=== PATIENT | male | born 1975 | race Caucasian/White ===

== ENCOUNTER 2024-03-27 15:18 | Emergency (ER) | payer BC, SELFPAY ==
[2024-03-27 15:18] VITALS: BP 139/110; PULSE 105; RESP 18; TEMP 36.4; O2SAT 97; BMI 35.0
--- NOTE | 2024-03-27 16:07 | CT_ITS ---
STUDY: CT ABDOMEN AND PELVIS WITH CONTRAST REASON FOR EXAM: Male, 49 years old. Nausea, vomiting, diarrhea RADIATION DOSAGE (If Supplied By Facility): CTDIvol = ( 18.30 ) mGy, DLP = ( 1304.58 ) mGycm TECHNIQUE: Transaxial images were obtained from the dome of the diaphragm to the symphysis pubis without oral contrast. IV 100mL Isovue-300 was administered. Sagittal and coronal images were reconstructed. Individualized dose optimization techniques were used for this CT. COMPARISON: None. FINDINGS: The visualized lung bases are unremarkable. The visualized portions of the heart are within normal limits. Normal liver. Normal gallbladder and extrahepatic biliary system. Normal spleen. Normal pancreas. Normal bilateral adrenal glands. Normal right kidney. Normal left kidney. Evaluation of the GI tract is limited by absence of oral contrast. Cannot exclude stomach wall thickening. There is moderate fluid distention of much of the mid and distal small bowel measuring as much as 3.5 cm across. Distal and terminal ileum are not distended. Small bowel obstruction is not excluded, but nonspecific diffuse enteritis is more likely. Large bowel is not distended. There is fluid throughout the large bowel as far as the rectum, consistent with nonspecific colitis/diarrheal disorders. Normal appendix. Normal abdominal aorta. Normal inferior vena cava. Normal retroperitoneum. Normal urinary bladder. Normal abdominal wall. Normal osseous structures. CT/Abdomen/Pelvis W IV Cont ONLY IMPRESSION: Fluid throughout the small and large bowel. Distention of most of the jejunum. Small bowel obstruction is not excluded, but nonspecific diffuse enterocolitis is more likely. Electronically Signed: Arnulfo Maguire MD at 18:32 EDT ,
--- NOTE | 2024-03-27 16:08 | ED.VIS.GI ---
HPI HPI - GI History of Present Illness Chief Complaint: Abd Pain Narrative Narrative: 49-year-old male who denies significant past medical history presents with nausea, vomiting, and diarrhea that has had over the last 4 days. He states symptoms started Sunday, mainly with nausea, vomiting, and diarrhea. In the last 24 hours he has vomited twice without any blood in his emesis and has had multiple episodes of loose, watery stool, without any blood. No fevers or chills. He has developed abdominal pain diffusely throughout his abdomen but mainly in the bilateral lower quadrants. He denies any dysuria or hematuria. No exacerbating or alleviating factors. No prior abdominal surgeries. [facility] Medical History (Updated 03/27/24 @ 18:38 by Fletcher Gil MD) HTN (hypertension) Home Medications ?Medication ?Instructions ?Recorded ?Last Taken ?Type dicyclomine 10 mg capsule 20 mg (2 x 10 mg) PO TID PRN 03/27/24 Unknown Rx abdominal pain #20 caps ondansetron 4 mg disintegrating 4 mg PO Q6H PRN nausea and 03/27/24 Unknown Rx tablet vomiting #20 tabs Allergy/AdvReac Type Severity Reaction Status Date / Time No Known Allergies Allergy Verified 03/27/24 15:21 Surgical History H/O knee surgery Social History Smoking Status: Current every day smoker tobacco type: cigarettes ROS ROS ED ROS Narrative Constitutional: No fever, no chills. HEENT: No sore throat. No neck pain. No loss of vision. No rhinorrhea. Cardiovascular: No chest pain. No palpitations. No pedal edema. Respiratory: No cough, no shortness of breath. Abdominal: Positive diffuse, bilateral lower quadrant abdominal pain. Positive nausea, vomiting, and diarrhea. No blood in emesis or stool. Genitourinary: No dysuria. No hematuria. Musculoskeletal: No myalgias. No arthralgias. Neurologic: No headaches. No dizziness. No lightheadedness. Skin: No rash. No change in color. Psychiatric: No depression. No anxiety. EXAM Physical Exam Narrative Exam Narrative: Afebrile. Vital signs noted. HEENT: Normocephalic. Atraumatic. PERRL, EOMI. Neck soft and supple. No point tenderness or step off. Cardiovascular: Mild tachycardia. No murmurs, rubs, or gallops appreciated. Respiratory: No tachypnea. Lungs clear to auscultation bilaterally. Gastrointestinal: Abdomen soft, positive diffuse tenderness with normoactive to hyperactive bowel sounds. No rebound or guarding. Neurological: Awake. Alert. Nonfocal, nonlateralizing. Skin: No rash. Normal color. No pallor. Musculoskeletal: No pedal edema. Full range of motion extremities. Const Vital Signs: 03/27/24 15:18 03/27/24 17:27 03/27/24 18:38 Temperature 97.5 F L 98.6 F 98.5 F Temperature Source Oral Oral Pulse Rate 105 H 68 75 Respiratory Rate 18 19 H 18 Blood Pressure 139/110 H 157/101 H 148/96 H Blood Pressure Mean 119 119 113 Pulse Ox 97 95 96 Oxygen Delivery Method Room Air Room Air MDM MDM MDM Narrative Medical decision making narrative: Differential diagnosis includes but not limited to colitis versus gastroenteritis versus diverticulitis. I have lower suspicion for appendicitis as he has more diffuse pain. As his symptoms have been ongoing for a few days and he is mildly tachycardic, concern is for dehydration or other electrolyte imbalance. He was administered a bolus of normal saline intravenously as well as ondansetron and morphine. I reviewed his laboratory work and he has slight elevation of his white count of 12.6 with hemoglobin hemoconcentrated at 18.4 and hematocrit 54.4, platelet count normal at 259. Electrolyte panel is significant for chloride of 110 which I think is nonspecific, BUN elevated at 21 with creatinine 1.33 consistent with mild dehydration, glucose appropriate at 91 with normal anion gap of 6. Lipase normal at 18 so I doubt pancreatitis. Urinalysis did show 5 ketones. While there is 4+ bacteria, there are 0 WBCs. I do not feel antibiotics are indicated as he is not having dysuria. I reviewed the radiology report of the CT of the abdomen and pelvis with IV contrast. It comments on moderate fluid distention of much of the mid and distal small bowel measuring is much as 3.5 cm across. There is distal and terminal ileum that is not distended. While small bowel obstruction is not excluded nonspecific diffuse enteritis is more likely. I do feel that given his GI symptoms, that this is more likely as well. Patient did require 0.5 mg of Dilaudid. Upon repeat examination at approximately 6:40 PM, his abdomen remains soft. He is motivated for discharge. He has not had any vomiting here in the emergency department. I feel he can be discharged safely home with follow-up to his primary care provider. He states he has an appointment with her next week. I wrote him prescriptions for Bentyl and for Zofran. Return instructions to the emergency department were reviewed. Patient agreeable to the plan. Disposition is discharged home in stable condition. History & Record Review Discussion w/independent historian: Patient Lab Data Attestation: I reviewed the patient's lab results. Labs: Laboratory Results - last 24 hr 03/27/24 16:49 WBC 12.6 H RBC 6.32 H Hgb 18.4 H* Hct 54.4 H MCV 86.1 MCH 29.1 MCHC 33.8 RDW Std Deviation 41.1 RDW Coeff of [place] 13.2 Plt Count 259 MPV 8.9 Immature Gran % (Auto) 0.400 Neut % (Auto) 78.7 H Lymph % (Auto) 13.5 L Williamson % (Auto) 5.7 Eos % (Auto) 0.9 Baso % (Auto) 0.8 Absolute Neuts (auto) 9.9 H Absolute Lymphs (auto) 1.70 Nucleated RBC % 0 Sodium 140 Potassium 3.9 Chloride 110 H Carbon Dioxide 25.0 Anion Gap 6 BUN 21 H Creatinine 1.33 H Estim Creat Clear Calc 75.47 Est GFR (MDRD) Af Amer 73 Est GFR (MDRD) Non-Af 61 BUN/Creatinine Ratio 15.8 Glucose 91 Calcium 9.9 Total Bilirubin 0.60 AST 34 ALT 65 H Alkaline Phosphatase 82 Total Protein 7.7 Albumin 4.2 Globulin 3.5 Albumin/Globulin Ratio 1.2 Lipase 18 Urine Color [place] Urine Clarity Turbid Urine pH 5.0 Ur Specific [place] 1.025 Urine Protein 30 H Urine Glucose (UA) Normal Urine Ketones 5 H Urine Occult Blood 250 H Urine Nitrite Negative Urine Bilirubin 1 H Urine Urobilinogen 1 H Ur Leukocyte Esterase 25 H Urine RBC 0 SEEN Urine WBC 0 SEEN Ur Squamous Epith Cells 0 SEEN Urine Bacteria 4+ Urine Mucus 0 SEEN Radiography Diagnostic Testing: Clinical Impression(s) from Imaging Studies Abdomen/Pelvis CT 03/27/24 16:07 IMPRESSION: Fluid throughout the small and large bowel. Distention of most of the jejunum. Small bowel obstruction is not excluded, but nonspecific diffuse enterocolitis is more likely. Electronically Signed: Arnulfo Maguire MD at 18:32 EDT , Discharge Plan Triage Chief Complaint: Abd Pain ED Provider: Fletcher Gil Dx/Rx/DC Orders Clinical Impression: Nausea, vomiting, and diarrhea, Abdominal pain, Mild dehydration Instructions: ED Dehydration (Adult), ED Diarrhea, Unknown Cause, ED Diet Vomiting Diarrhea, ED Abdominal Pain Unkn Cause Male... Prescriptions: New dicyclomine 10 mg capsule 20 mg PO TID PRN (Reason: abdominal pain) Qty: 20 0RF ondansetron 4 mg tablet,disintegrating 4 mg PO Q6H PRN (Reason: nausea and vomiting) Qty: 20 0RF Stand Alone Forms: ED Work / School Excuse Primary Care Provider: Care Physician,No Primary Referrals: Care Physician,No Primary [Primary Care Provider] - Activity Restrictions/Additional Instructions: Follow-up with your primary care provider as scheduled next week. Return to the emergency department with fever, increased pain, inability to tolerate liquids, new or worsening symptoms. Print Language: Citizen Of [place] Disposition Disposition: Home, Self Care
[2024-03-27] MEDS: 0.9% Normal Saline (1000mL) 1,000 ML 999 ML IV (16:45)
[2024-03-27] MEDS: Ondansetron 4 MG/2 ML Vial IV (16:45)
[2024-03-27] MEDS: Morphine 4 MG/ML Syringe IV (16:45)
[2024-03-27 16:53] LABS: Mucous, Urine 0 SEEN /hpf (<or=2+); Red Blood Cells-Urine 0 SEEN /hpf (0-5); Squamous Epithelial Cells - UA 0 SEEN /hpf (0-5); White Blood Cells 0 SEEN /hpf (0-5)
[2024-03-27 17:01] LABS: Color, Urine Amber (Yellow); Glucose, Dipstick Normal (Normal); Ketone-Dipstick 5 mg/dl (Negative); Leukocyte Esterase-Dipstick 25 /ul (Negative); Nitrite-Dipstick Negative (Negative); Occult Blood-Urine 250 /ul (Negative); Protein-Dipstick 30 mg/dl (Negative); Specific Gravity, Urine 1.025 (1.002-1.030); Urine Clarity Turbid (Clear); Urine Urobilinogen 1 mg/dl (Normal)
[2024-03-27 17:06] LABS: Absolute Neutrophil Count 9.9 X10^3/uL (2.0-7.7); Basophil% 0.8 % (0-1); Eosinophil# 0.11 X10^3/uL; Eosinophils% 0.9 % (0-5); Hematocrit 54.4 % (40-54); Lymphocyte % 13.5 % (19-41); Mean Corp Hgb Conc 33.8 g/dL (32-36); Mean Corpuscular Hgb 29.1 pg (27.0-32.0); Mean Corpuscular Volume 86.1 fL (80-94); Mean Platelet Vol. 8.9 fl (6.2-12.0); Monocyte# 0.72 X10^3/uL; Monocyte% 5.7 % (0-10); NRBC Flagged by Analyzer 0 % (0-5); Neutrophil # 9.91 X10^3/uL (2.7-7.7); Neutrophil % 78.7 % (47-70); Platelet Count 259 K/mm3 (150-450); RBC Distribution Width CV 13.2 % (11.6-14.6); RBC Distribution Width SD 41.1 fl (35.1-43.9); Red Blood Count 6.32 M/mm3 (4.6-6.2); White Blood Count 12.6 K/mm3 (4.4-11.0)
[2024-03-27 17:14] LABS: Urine Bilirubin Dipstick 1 mg/dL (Negative)
[2024-03-27 17:16] LABS: Bacteria 4+ /hpf (None Seen)
[2024-03-27 17:24] LABS: ALB/GLOB Ratio 1.2 RATIO (0.9-2.4); AST(SGOT) 34 U/L (15-37); Alanine Aminotransfer ALT/SGPT 65 U/L (16-61); Albumin, Serum 4.2 g/dL (3.2-5.0); Alkaline Phosphatase 82 U/L (45-117); Anion Gap 6 (5-15); BUN 21 mg/dL (7-18); BUN/Creat Ratio 15.8 RATIO (10-20); Calcium,Total 9.9 mg/dL (8.5-10.1); Chloride 110 mmol/L (98-107); Creatinine, Serum 1.33 mg/dL (0.70-1.30); EST Glomerular Filtration Rate 61 mL/min (>60); Est Glom Filt Rate - Afr Amer 73 mL/min (>60); Estimated Creatinine Clearance 75.47 ml/min; Globulin 3.5 g/dL (2.2-4.2); Glucose 91 mg/dL (74-106); Lipase 18 U/L (13-75); Potassium 3.9 mmol/L (3.5-5.1); Protein, Total 7.7 g/dL (6.4-8.2); Sodium Level 140 mmol/L (136-145)
[2024-03-27 17:27] VITALS: BP 157/101; PULSE 68; RESP 19; TEMP 37; O2SAT 95
[2024-03-27 17:49] LABS: Hemoglobin 18.4 g/dL (13.0-16.5)
[2024-03-27] MEDS: HYDROmorphone 0.5 MG/0.5 ML SYRINGE IV (18:12)
[2024-03-27 18:38] VITALS: BP 148/96; PULSE 75; RESP 18; TEMP 36.9; O2SAT 96
[2024-03-31 13:53] LABS: Pathologist Review Reviewed
== END 2024-03-27 18:47 | disposition home or self-care (01) ==
PROVIDERS: Emergency Provider Emergency Medicine; Referring Provider Emergency Medicine; Visit Provider Emergency Medicine
DX: R10.30 Lower abdominal pain, unspecified (principal); R11.2 Nausea with vomiting, unspecified; I10 Essential (primary) hypertension; R19.7 Diarrhea, unspecified; F17.210 Nicotine dependence, cigarettes, uncomplicated; E86.0 Dehydration
CPT/HCPCS: 74177; 80053; 81001; 83690; 85025; 96361; 96372; 96374; 96375; 99284; J7030; Q9967; A4216; J2405

== ENCOUNTER 2024-05-01 05:19 | Emergency (ER) | payer BC, SELFPAY ==
[2024-05-01 05:20] VITALS: BP 134/94; PULSE 71; RESP 18; TEMP 36.6; O2SAT 99; BMI 35.6
[2024-05-01] MEDS: Ketorolac 30 MG/ML Syringe IV (05:46)
[2024-05-01] MEDS: 0.9% Normal Saline (1000mL) 1,000 ML 999 ML IV (05:46)
[2024-05-01] MEDS: Ondansetron 4 MG/2 ML Vial IV (05:46)
[2024-05-01 05:55] LABS: Absolute Lymphocyte Count 2.08 X10^3/uL (0.83-4.51); Absolute Neutrophil Count 4.1 X10^3/uL (2.0-7.7); Basophil# 0.11 X10^3/uL; Basophil% 1.6 % (0-1); Eosinophil# 0.25 X10^3/uL; Eosinophils% 3.5 % (0-5); Hematocrit 48.2 % (40-54); Hemoglobin 16.7 g/dL (13.0-16.5); Lymphocyte # 2.08 X10^3/ul (0.83-4.51); Lymphocyte % 29.5 % (19-41); Mean Corp Hgb Conc 34.6 g/dL (32-36); Mean Corpuscular Hgb 30.5 pg (27.0-32.0); Mean Corpuscular Volume 88.1 fL (80-94); Monocyte# 0.46 X10^3/uL; Monocyte% 6.5 % (0-10); NRBC Flagged by Analyzer 0 % (0-5); Neutrophil # 4.13 X10^3/uL (2.7-7.7); Neutrophil % 58.5 % (47-70); Platelet Count 200 K/mm3 (150-450); RBC Distribution Width CV 13.2 % (11.6-14.6); RBC Distribution Width SD 42.5 fl (35.1-43.9); Red Blood Count 5.47 M/mm3 (4.6-6.2); White Blood Count 7.1 K/mm3 (4.4-11.0)
[2024-05-01 06:18] LABS: AST(SGOT) 26 U/L (15-37); Alanine Aminotransfer ALT/SGPT 48 U/L (16-61); Albumin, Serum 3.7 g/dL (3.2-5.0); Alkaline Phosphatase 75 U/L (45-117); Anion Gap 3 (5-15); BUN 14 mg/dL (7-18); BUN/Creat Ratio 12.1 RATIO (10-20); Bilirubin, Direct 0.18 mg/dL (0.00-0.30); Chloride 110 mmol/L (98-107); Creatinine, Serum 1.16 mg/dL (0.70-1.30); EST Glomerular Filtration Rate 71 mL/min (>60); Est Glom Filt Rate - Afr Amer 86 mL/min (>60); Estimated Creatinine Clearance 87.31 ml/min; Globulin 3.1 g/dL (2.2-4.2); Glucose 107 mg/dL (74-106); Lipase 39 U/L (13-75); Magnesium 2.1 mg/dL (1.6-2.6); Potassium 3.8 mmol/L (3.5-5.1); Protein, Total 6.8 g/dL (6.4-8.2); Sodium Level 141 mmol/L (136-145)
[2024-05-01 06:53] VITALS: BP 138/79; PULSE 79; RESP 18; TEMP 36.6; O2SAT 99
== END 2024-05-01 06:54 | disposition home or self-care (01) ==
PROVIDERS: Emergency Provider Emergency Medicine; Visit Provider Emergency Medicine
DX: R11.2 Nausea with vomiting, unspecified (principal); R19.7 Diarrhea, unspecified; I10 Essential (primary) hypertension; F17.210 Nicotine dependence, cigarettes, uncomplicated; R50.9 Fever, unspecified
CPT/HCPCS: 80048; 80076; 83690; 83735; 85025; 87631; 96361; 96374; 96375; 99283; J7030; A4216; J2405

== ENCOUNTER 2024-11-27 03:22 | Emergency (ER) | payer OTHER, SELFPAY ==
[2024-11-27 03:23] VITALS: BP 134/95; PULSE 102; RESP 18; TEMP 36.6; O2SAT 98; BMI 36.8
[2024-11-27 03:27] VITALS: BP 134/95; PULSE 102; RESP 18; TEMP 36.6; O2SAT 98
[2024-11-27 03:48] LABS: Absolute Lymphocyte Count 1.71 X10^3/uL (0.83-4.51); Absolute Neutrophil Count 9.2 X10^3/uL (2.0-7.7); Basophil% 0.8 % (0-1); Eosinophil# 0.17 X10^3/uL; Eosinophils% 1.4 % (0-5); Hematocrit 49.7 % (40-54); Hemoglobin 17.2 g/dL (13.0-16.5); Lymphocyte # 1.71 X10^3/ul (0.83-4.51); Lymphocyte % 14.2 % (19-41); Mean Corp Hgb Conc 34.6 g/dL (32-36); Mean Corpuscular Hgb 30.2 pg (27.0-32.0); Mean Corpuscular Volume 87.2 fL (80-94); Mean Platelet Vol. 9.1 fl (6.2-12.0); Monocyte# 0.85 X10^3/uL; Monocyte% 7.1 % (0-10); NRBC Flagged by Analyzer 0 % (0-5); Neutrophil # 9.16 X10^3/uL (2.7-7.7); Platelet Count 221 K/mm3 (150-450); RBC Distribution Width CV 13.1 % (11.6-14.6); RBC Distribution Width SD 41.1 fl (35.1-43.9); White Blood Count 12.1 K/mm3 (4.4-11.0)
[2024-11-27] MEDS: Ketorolac 30 MG/ML Syringe IV (03:55)
[2024-11-27] MEDS: 0.9% Normal Saline (1000mL) 1,000 ML 999 ML IV ×2 (03:55→04:56)
[2024-11-27] MEDS: Ondansetron 4 MG/2 ML Vial IV (03:56)
[2024-11-27 04:14] LABS: AST(SGOT) 32 U/L (<=37); Alanine Aminotransfer ALT/SGPT 50 U/L (<=46); Albumin, Serum 4.4 g/dL (3.5-5.0); Alkaline Phosphatase 89 U/L (40-129); Anion Gap 14 (5-15); BUN 18 mg/dL (4-19); BUN/Creat Ratio 14.4 RATIO (10-20); Bilirubin, Direct 0.23 mg/dL (0.00-0.30); Calcium,Total 9.1 mg/dL (7.6-11.0); Carbon Dioxide 22.7 mmol/L (21.0-32.0); Chloride 106 mmol/L (98-108); Creatinine, Serum 1.26 mg/dL (0.70-1.20); EST Glomerular Filtration Rate 69 (>60); Estimated Creatinine Clearance 81.72 ml/min (50-250); Globulin 2.4 g/dL (2.2-4.2); Glucose 107 mg/dL (70-99); Lipase 23 U/L (13-75); Potassium 3.8 mmol/L (3.3-5.1); Protein, Total 6.8 g/dL (5.9-8.4); Sodium Level 142 mmol/L (133-145); Total Bilirubin 0.59 mg/dL (0.00-1.30)
--- OUTSIDE RECORDS SUMMARY | 2024-11-27 04:19 | XMS RPT_ITS | CCD ---
Author Organization [facility] Care Team Providers Care Dressmaking Teacher Name Role Phone Required, No Pcp Unavailable Unavailable Gerardo Saunders Unavailable Unavailable Jasmin Mayer Primary Care Provider SCOTT MCDANIELS APRN Attending Unavailable SCOTT MCDANIELS APRN Primary Care Unavailable SCOTT MCDANIELS APRN Admitting Unavailable SCOTT MCDANIELS APRN Admitting Unavailable SCOTT MCDANIELS APRN Attending Unavailable SCOTT MCDANIELS APRN Primary Care Unavailable SCOTT MCDANIELS APRN Attending Unavailable SCOTT MCDANIELS APRN Primary Care Unavailable SCOTT MCDANIELS APRN Admitting Unavailable Jasmin Mayer Primary Care Provider JASMIN CASEY Primary Care Unavailable BERTO DIANA Attending Unavailable JASMIN CASEY Primary Care Unavailable JASMIN CASEY Primary Care Unavailable GERARDO SAUNDERS Attending Unavailable Medications Current Medications Medication Drug Class(es) Dates Sig (Normalized) Sig (Original) atropine sulfate 0.025 mg / diphenoxylate hydrochloride 2.5 mg oral tablet (2 sources) Anticholinergic, Cholinergic Muscarinic Antagonist, Antidiarrheal Start: 03-24-2024 End: 03-27-2024 take 1 tablet by mouth four times daily as needed for diarrhea diphenoxylate-atrop ine (LomotiL) 2.5-0.025 mg tablet Indications: Diarrhea, unspecified type Take 1 tablet by mouth 4 times a day as needed for diarrhea for up to 3 days. 12 tablet 03/24/2024 03/27/2024 Active ciprofloxacin 500 mg oral tablet (2 sources) Quinolone Antimicrobial Start: 03-24-2024 End: 03-31-2024 take 1 tablet by mouth twice daily ciprofloxacin (Cipro) 500 mg tablet Indications: Abdominal pain, unspecified abdominal location , Diarrhea, unspecified type , Enteritis Take 1 tablet (500 mg) by mouth 2 times a day for 7 days. 14 tablet 03/24/2024 03/31/2024 Active dicyclomine hydrochloride 20 mg oral tablet (1 source) Anticholinergic Start: 03-26-2024 End: 04-02-2024 take 1 tablet by mouth four times daily before mealtime dicyclomine (Bentyl) 20 mg tablet Indications: Enteritis Take 1 tablet (20 mg) by mouth 4 times a day before meals for 7 days. 28 tablet 03/26/2024 04/02/2024 Active ondansetron 8 mg disintegrating oral tablet (3 sources) Serotonin-3 Receptor Antagonist Start: 03-26-2024 End: 04-02-2024 take 1 tablet by mouth every eight hours for nausea ondansetron ODT (Zofran-ODT) 8 mg disintegrating tablet Indications: Enteritis Take 1 tablet (8 mg) by mouth every 8 hours if needed for nausea or vomiting for up to 7 days. 20 tablet 03/26/2024 04/02/2024 Active Start: 03-26-2024 End: 03-26-2024 4 mg, intravenous, Once, On Sun03/26/24 at 0340, For 1 dose, When administering via IV Push, administer over 3-5 minutes. Start: 03-24-2024 End: 03-24-2024 4 mg, intravenous, Once, On Sun03/24/24 at 1240, For 1 dose, When administering via IV Push, administer over 3-5 minutes. predniSONE 20 mg oral tablet (1 source) Start: 10-28-2024 End: 11-02-2024 take 2 tablets by mouth once daily predniSONE (Deltasone) 20 mg tablet Indications: Pain of right heel Take 2 tablets (40 mg) by mouth once daily for 5 days. 10 tablet 10/28/2024 11/02/2024 Active promethazine hydrochloride 25 mg rectal suppository (1 source) Phenothiazine Start: 03-26-2024 End: 03-29-2024 promethazine (Phenergan) 25 mg suppository Indications: Enteritis Insert 1 suppository (25 mg) into the rectum every 6 hours if needed for nausea or vomiting for up to 3 days. 12 suppository 03/26/2024 03/29/2024 Active Completed/Discontinued Medications Medication Drug Class(es) Dates Sig (Normalized) Sig (Original) iohexol (OMNIPaque) 350 mg iodine/mL solution 68 mL (1 source) Start: 03-26-2024 End: 03-26-2024 68 mL, intravenous, Once in imaging, Starting on Sun03/26/24 at 0446, For 1 dose iohexol (OMNIPaque) 350 mg iodine/mL solution 69 mL (1 source) Start: 03-24-2024 End: 03-24-2024 69 mL, intravenous, Once in imaging, Starting on Sun03/24/24 at 1354, For 1 dose methylPREDNISolone 125 mg injection (1 source) Corticosteroid Start: 10-28-2024 End: 10-28-2024 inject 125 mg by intramuscular injection once 125 mg, intramuscular, Once, On Sun10/28/24 at 2005, For 1 dose 1 ml morphine sulfate 4 mg/ml prefilled syringe (2 sources) Opioid Agonist Start: 03-26-2024 End: 03-26-2024 4 mg, intravenous, Once, On Sun03/26/24 at 0340, For 1 dose Start: 03-24-2024 End: 03-24-2024 4 mg, intravenous, Once, On Sun03/24/24 at 1240, For 1 dose 1000 ml sodium chloride 9 mg/ml injection (5 sources) Start: 03-26-2024 End: 03-26-2024 1,000 mL, intravenous, at 99 9 mL/hr, Administer over 1 Hours, Once, On Sun03/26/24 at 0550, For 1 dose Start: 03-24-2024 End: 03-24-2024 1,000 mL, intravenous, at 99 9 mL/hr, Administer over 1 Hours, Once, On Sun03/24/24 at 1215, For 1 dose Start: 03-24-2024 take 125 mL intraven ously every hour 125 mL/hr, intravenous, Continuous, Starting on Sun03/24/24 at 1215 Problems Active Problems Problem Classification Problem Date Documented Da te Episodic/Chronic Deficiency and other anemia (2 sources) Other hemoglobinopathies ; 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-2024 Chronic Disorders of lipid metabolism (2 sources) Mixed hyperlipidemia; Translations: [Mixed hyperlipidemia] Onset: 04-01-2024 Chronic Essential hypertension (2 sources) Essential (primary) hypertension; Translations: [Essential (primary) hypertension] Onset: 04-01-2024 Chronic Headache; including migraine (2 sources) Headache; including migraine 04-13-2021 Comment on above: COUGH, HEADACHE, BOD Y ACHES Other connective tissue disease (1 source) Pain in right heel; Translations: [Pain in right foot] 10-28-2024 Episodic Other connective tissue disease (2 sources) Pain in right foot; Translations: [Pain in right foot] Onset: 10-28-2024 Episodic Other gastrointestinal disorders (1 source) Diarrhea; Translations: [Diarrhea, unspecified] 03-24-2024 Episodic Unclassified (1 source) COVID-19 viremia 04-13-2021 Viral infection (1 source) Viremia, unspecified 04-13-2021 Episodic Past or Other Problems Problem Classification Problem Date Documented Da te Episodic/Chronic Abdominal pain (3 sources) Abdominal pain; Translations: [Unspecified abdominal pain] Onset: 03-24-2024 03-24-2024 Episodic Noninfectious gastroenteritis (4 sources) Enteritis of small intestine; Translations: [Noninfective gastroenteritis and colitis, unspecified] Onset: 03-24-2024 03-26-2024 Episodic Other gastrointestinal disorders (2 sources) Diarrhea, unspecified; Translations: [Diarrhea, unspecified] Onset: 03-24-2024 Episodic Results Test Name Value Interpretation Reference Range Facility XR FOOT RIGHT 3+ VIEWSon XR FOOT RIGHT 3+ VIEWS Interpreted By: Eusebio Iqbal, STUDY: XR FOOT RIGHT 3+ VIEWS; ; 10/28/2024 7:30 pm INDICATION: Signs/Symptoms:heel pain. COMPARISON: None. ACCESSION NUMBER(S): [id number] ORDERING CLINICIAN: JENNIFER RAMIREZ FINDINGS: Mild arthritic spurring 1st MTP joint. No acute fracture or dislocation. Enthesophytes seen insertion of the Achilles tendon. IMPRESSION: No acute fracture. Degenerative changes as above. MACRO: None Signed by: Eusebio Iqbal 10/28/2024 7:53 PM Dictation workstation: [id number] [facility] XR Foot - right 3 Viewson No acute fracture. Degenerative changes as above. MACRO: None Signed by: Eusebio Iqbal 10/28/2024 7:53 PM Dictation workstation: [id number] [facility] Interpreted By: Eusebio Chakraborty ala, STUDY: XR FOOT RIGHT 3+ VIEWS; ; 10/28/2024 7:30 pm INDICATION: Signs/Symptoms:heel pain. COMPARISON: None. ACCESSION NUMBER(S): [id number] ORDERING CLINICIAN: JENNIFER RAMIREZ FINDINGS: Mild arthritic spurring 1st MTP joint. No acute fracture or dislocation. Enthesophytes seen insertion of the Achilles tendon. [facility] Eusebio Iqbal MD - 10/28/2024 Interpreted By: Eusebio Iqbal, STUDY: XR FOOT RIGHT 3+ VIEWS; ; 10/28/2024 7:30 pm INDICATION: Signs/Symptoms:heel pain. COMPARISON: None. ACCESSION NUMBER(S): [id number] ORDERING CLINICIAN: JENNIFER RAMIREZ FINDINGS: Mild arthritic spurring 1st MTP joint. No acute fracture or dislocation. Enthesophytes seen insertion of the Achilles tendon. IMPRESSION: No acute fracture. Degenerative changes as above. MACRO: None Signed by: Eusebio Iqbal 10/28/2024 7:53 PM Dictation workstation: [id number] [facility] Work Phone: Radiology Study observation (narrative) [facility] Work Phone: XR Foot - right 3 ViewsOrder ed By: Eusebio Iqbal on 10-28-2024 [facility] Work Phone: CBC + DIFFon 04-01-2024 Baso # 0.07 x10EE3/UL Normal 0.00 - 0.10 [facility] Comment on above: Performed By: #### 2 99735 #### [facility],[address] [place], [place] [id number] Basophils/100 WBC (Bld) 0.7 % Normal 0.0 - 2.0 [facility] Comment on above: Performed By: #### 2 68683 #### [facility],[address] [place], [place] [id number] CBC + DIFF Normal [facility] Comment on above: Result Comment: CBC- COMPLETE BLOOD COUNT Performed By: #### 2 81599 #### [address] [address] EO # 0.31 x10EE3/UL Normal 0.00 - 0.50 [facility] Comment on above: Performed By: #### 2 31511 #### [place] [id number] Eosinophils/100 WBC (Bld) 3.1 % Normal 0.0 - 7.0 [facility] Comment on above: Performed By: #### 2 98995 #### [place] [address] Erythrocyte distribution width (RBC) [Ratio] 13.8 % Normal 12.0 - 15.6 [facility] Comment on above: Performed By: #### 2 63811 #### [place] [address] Hematocrit (Bld) [Volume fraction] 56.8 % High 40.0 - 52.0 [facility] Comment on above: Performed By: #### 2 70504 #### [place] [address] Hemoglobin (Bld) [Mass/Vol] 19.3 g/dL High 13.0 - 17.5 [facility] Comment on above: Performed By: #### 2 63415 #### [place] [id number] Lymph # 2.45 x10EE3/UL Normal 0.80 - 2.80 [facility] Comment on above: Performed By: #### 2 18025 #### [place] [id number] Lymphocytes/100 WBC (Bld) 24.3 % Normal 20.0 - 45.0 [facility] Comment on above: Performed By: #### 2 33349 #### [facility],[address] [place] [address] MANUAL DIFF N/A Normal [facility] Comment on above: Performed By: #### 2 86381 #### [facility],[address] [place] [address] MCH (RBC) [Entitic mass] 30 pg Normal 27 - 33 [facility] Comment on above: Performed By: #### 2 79429 #### [place] [address] MCHC 34 X10 3 Normal 32 - 36 [facility] Comment on above: Performed By: #### 2 41410 #### [place] [address] MCV (RBC) [Entitic vol] 89 fL Normal 81 - 98 [facility] Comment on above: Performed By: #### 2 98862 #### [place] [address] [place]au # 0.57 x10EE3/UL Normal 0.20 - 1.00 [facility] Comment on above: Performed By: #### 2 70771 #### [place] [address] MONOS % 5.6 % Normal 0.0 - 10.0 [facility] Comment on above: Performed By: #### 2 65148 #### [facility],[address] [place] [address] Morphology Edwardo (Bld) [Interp] N/A Normal [facility] Comment on above: Performed By: #### 2 14646 #### [place] [address] Neut # 6.71 x10EE3/UL Normal 1.50 - 7.10 [facility] Comment on above: Performed By: #### 2 03393 #### [place] [address] Neutrophils/100 WBC (Bld) 66.4 % Normal 46.0 - 76.0 [facility] Comment on above: Performed By: #### 2 25314 #### [facility],[address] [place] [address] PLATELET 262 x10EE3/UL Normal 150 - 450 [facility] Comment on above: Performed By: #### 2 80898 #### [facility],[address] [place] [address] 95868 Platelet mean volume (Bld) [Entitic vol] 7.5 fL Normal 6.4 - 10.5 [facility] Comment on above: Result Comment: AUTO MATED DIFFERENTIAL Performed By: #### 2 30458 #### [facility],[address] [place] [address]89[address] RBC 6.40 x 10EE6/UL High 4.50 - 6.00 [facility] Comment on above: Performed By: #### 2 57631 #### [facility],[address] [place] [address]37[address] WBC 10.1 x 10EE3/UL Normal 4.5 - 10.8 [facility] Comment on above: Performed By: #### 2 25194 #### [facility],[address] [place] [address]4212 CMP with eGFRon 04-01-2024 AGE 49 years Normal [facility] Comment on above: Performed By: #### 2 85924 #### [facility],[address] [place] [address]606 Albumin [Mass/Vol] 4.0 g/dL Normal 3.4 - 5.0 [facility] Comment on above: Performed By: #### 2 67576 #### [facility],[address] [place] [address]32 Albumin/Globulin [Mass ratio] 1.3 {ratio} Normal 0.9 - 1.6 [facility] Comment on above: Performed By: #### 2 41777 #### [facility],[address] [place] [address] 04835 ALK PHOS 89 U/L Normal 46 - 116 [facility] Comment on above: Performed By: #### 2 01888 #### [facility],[address] [place] [address] 35415 ALT [Catalytic activity/Vol] 55 U/L Normal 16 - 63 [facility] Comment on above: Performed By: #### 2 07564 #### [facility],[address] [place] [address] 249[address] Anion gap [Moles/Vol] 15 mmol/L Normal 10 - 20 [facility] Comment on above: Performed By: #### 2 46935 #### [facility],[address] [place] [address] 18272 AST [Catalytic activity/Vol] 26 U/L Normal 15 - 37 [facility] Comment on above: Performed By: #### 2 22499 #### [facility],[address] [place] [address] 33267 B/C RATIO 10 ratio Normal 0 - 30 [facility] Comment on above: Performed By: #### 2 36848 #### [facility],[address] [place] [address] 01438 Bilirubin [Mass/Vol] 0.3 mg/dL Normal 0.2 - 1.0 [facility] Comment on above: Performed By: #### 2 90514 #### [facility],[address] [place] [address]1929 Calcium [Mass/Vol] 9.1 mg/dL Normal 8.5 - 10.1 [facility] Comment on above: Performed By: #### 2 69468 #### [facility],[address] [place] [address] 48027 Chloride [Moles/Vol] 108 mmol/L High 98 - 107 [facility] Comment on above: Performed By: #### 2 47994 #### [facility],[address] [place] [address] CMP with eGFR Normal [facility] Comment on above: Result Comment: COMP REHENSIVE METABOLIC PANEL Performed By: #### 2 27271 #### [facility],[address] [place] [address]80[address] CO2 [Moles/Vol] 27.1 mmol/L Normal 21.0 - 32.0 [facility] Comment on above: Performed By: #### 2 09180 #### [facility],[address] [place] [address] 55067 Creatinine [Mass/Vol] 1.22 mg/dL Normal 0.70 - 1.30 [facility] Comment on above: Performed By: #### 2 73151 #### [facility],[address] [place] [address] GFR/1.73 sq M.predicted among non-blacks MDRD (S/P/Bld) [Vol rate/Area] mL/min/{1.73_m2} Normal 60 - 999 [facility] Comment on above: Performed By: #### 2 59445 #### [facility],[address] [place] [address] Result Comment: ACCO RDING TO THE NATIONAL KIDNEY DISEASE EDUCATION PROGRAM(NKDE), A NORMAL eGFR IS A VALUE GREATER THAN OR EQUAL TO 60 ML/MIN/1.73 SQ METERS. CHRONIC KIDNEY DISEASE: <60mL/MIN/1.73 SQ METERS KIDNEY FAILURE: <15mL/MIN/1.73 SQ METERS THIS TEST SHOULD ONLY BE USED FOR PATIENTS 18 YEARS OF AGE AND OLDER. Globulin (S) [Mass/Vol] 3.2 g/dL Normal 1.5 - 3.8 [facility] Comment on above: Performed By: #### 2 11518 #### [facility],[address] [place], [place] [phone] Glucose [Mass/Vol] 102 mg/dL Normal 74 - 106 [facility] Comment on above: Performed By: #### 2 84679 #### [facility],[address] [place] [address]36[address] Potassium [Moles/Vol] 4.5 mmol/L Normal 3.5 - 5.1 [facility] Comment on above: Performed By: #### 2 31643 #### [facility],[address] [place] [address] Protein [Mass/Vol] 7.2 g/dL Normal 6.4 - 8.2 [facility] Comment on above: Performed By: #### 2 32476 #### [facility],[address] [place] [address] Sodium [Moles/Vol] 146 mmol/L High 136 - 145 [facility] Comment on above: Performed By: #### 2 08989 #### [facility],[address] [place] [address] 19349 Urea nitrogen [Mass/Vol] 12 mg/dL Normal 7 - 18 [facility] Comment on above: Performed By: #### 2 83550 #### [facility],[address] [place] [address] LIPID PROFILEon 04-01-2024 Cholesterol [Mass/Vol] 120 mg/dL Normal 0 - 240 [facility] Comment on above: Performed By: #### 2 98359 #### [facility],[address] [place] [address] 18932 Cholesterol in HDL [Mass/Vol] 34 mg/dL Low 40 - 60 [facility] Comment on above: Performed By: #### 2 87488 #### [facility],[address] [place] [address] Cholesterol in LDL [Mass/Vol] 56 mg/dL Normal 0 - 129 [facility] Comment on above: Performed By: #### 2 58891 #### [facility],[address] [place] [address] 714[address] Cholesterol.total/C holesterol in HDL [Mass ratio] 3.5 {ratio} Normal 0.0 - 5.0 [facility] Comment on above: Performed By: #### 2 68879 #### [facility],[address] [place] [address] Lipid 1996 panel Normal [facility] Comment on above: Result Comment: LIPI D PROFILE Performed By: #### 2 88176 #### [facility],[address] [place] [address] Triglyceride [Mass/Vol] 148 mg/dL Normal 0 - 150 [facility] Comment on above: Performed By: #### 2 66726 #### [facility],[address] [place] [address] CBC W Auto Differential pane l (Bld)on 03-26-2024 Basophils (Bld) [#/Vol] 0.07 10*3/uL [facility] Basophils/100 WBC (Bld) 0.8 % 0.0 - 2.0 % [facility] Eosinophils (Bld) [#/Vol] 0.37 10*3/uL [facility] Eosinophils/100 WBC (Bld) 4.1 % 0.0 - 6.0 % [facility] Erythrocyte distribution width (RBC) [Ratio] 13.2 % 11.5 - 14.5 % [facility] Hematocrit (Bld) [Volume fraction] 47.4 % 41.0 - 52.0 % [facility] Hemoglobin (Bld) [Mass/Vol] 16.3 g/dL 13.5 - 17.5 g/dL [facility] Immature granulocytes (Bld) [#/Vol] 0.03 10*3/uL [facility] Immature granulocytes/100 WBC (Bld) 0.3 % 0.0 - 0.9 % [facility] Comment on above: Immature Granulocyte Count (IG) includes promyelocytes, myelocytes and metamyelocytes but does not include bands. Percent differential counts (%) should be interpreted in the context of the absolute cell counts (cells/UL). Lymphocytes (Bld) [#/Vol] 2.56 10*3/uL [facility] Lymphocytes/100 WBC (Bld) 28.3 % 13.0 - 44.0 % [facility] MCH (RBC) [Entitic mass] 30.0 pg 26.0 - 34.0 pg [facility] MCHC (RBC) [Mass/Vol] 34.4 g/dL 32.0 - 36.0 g/dL [facility] MCV (RBC) [Entitic vol] 87 fL 80 - 100 fL [facility] Monocytes (Bld) [#/Vol] 0.44 10*3/uL [facility] Monocytes/100 WBC (Bld) 4.9 % 2.0 - 10.0 % [facility] Neutrophils (Bld) [#/Vol] 5.57 10*3/uL [facility] Comment on above: Percent differential counts (%) should be interpreted in the context of the absolute cell counts (cells/uL). Neutrophils/100 WBC (Bld) 61.6 % 40.0 - 80.0 % [facility] Nucleated RBC/100 WBC (Bld) [Ratio] 0.0 % [facility] Platelets (Bld) [#/Vol] 220 10*3/uL [facility] RBC (Bld) [#/Vol] 5.43 10*6/uL [facility] WBC (Bld) [#/Vol] 9.0 10*3/uL [facility] Basophils (Bld) [#/Vol] 0.07 x10*3/uL Normal 0.00-0.10 [facility] Comment on above: Performed By: #### 1 9123-9 #### DEVANG CHU ([id number]) [facility] ([facility]) [address] [place] [address]661 Basophils/100 WBC (Bld) 0.8 % Normal 0.0-2.0 [facility] Comment on above: Performed By: #### 1 9123-9 #### DEVANG CHU ([id number]) [facility] ([facility]) [facility] [place] [address] Eosinophils (Bld) [#/Vol] 0.37 x10*3/uL Normal 0.00-0.70 [facility] Comment on above: Performed By: #### 1 9123-9 #### DEVANG CHU ([id number]) [facility] ([facility]) [address] [place] [address] 58831 Eosinophils/100 WBC (Bld) 4.1 % Normal 0.0-6.0 [facility] Comment on above: Performed By: #### 1 9123-9 #### DEVANG CHU ([id number]) [facility] ([facility]) [address] [place] [address] 62004 Erythrocyte distribution width (RBC) [Ratio] 13.2 % Normal 11.5-14.5 [facility] Comment on above: Performed By: #### 1 9123-9 #### DEVANG CHU ([id number]) [facility] ([facility]) [address] [place] [address] Hematocrit (Bld) [Volume fraction] 47.4 % Normal 41.0-52.0 [facility] Comment on above: Performed By: #### 1 9123-9 #### DEVANG CHU ([id number]) [facility] ([facility]) [address] [place] [address] 86589 Hemoglobin (Bld) [Mass/Vol] 16.3 g/dL Normal 13.5-17.5 [facility] Comment on above: Performed By: #### 1 9123-9 #### DEVANG CHU ([id number]) [facility] ([facility]) [address] [place] [address] 46155 Immature granulocytes (Bld) [#/Vol] 0.03 x10*3/uL Normal 0.00-0.70 [facility] Comment on above: Performed By: #### 1 9123-9 #### DEVANG CHU ([id number]) [facility] ([facility]) [address] [place] [address] 70616 Immature granulocytes/100 WBC (Bld) 0.3 % Normal 0.0-0.9 [facility] Comment on above: Result Comment: Keena ture Granulocyte Count (IG) includes promyelocytes, myelocytes and metamyelocytes but does not include bands. Percent differential counts (%) should be interpreted in the context of the absolute cell counts (cells/UL). Performed By: #### 1 9123-9 #### DEVANG CHU ([id number]) [facility] ([facility]) [address] [place] [address] 56553 Lymphocytes (Bld) [#/Vol] 2.56 x10*3/uL Normal 1.20-4.80 [facility] Comment on above: Performed By: #### 1 9123-9 #### DEVANG CHU ([id number]) [facility] ([facility]) [address] [place] [address] 05327 Lymphocytes/100 WBC (Bld) 28.3 % Normal 13.0-44.0 [facility] Comment on above: Performed By: #### 1 9123-9 #### DEVANG CHU ([id number]) [facility] ([facility]) [address] [place] [address] MCH (RBC) [Entitic mass] 30.0 pg Normal 26.0-34.0 [facility] Comment on above: Performed By: #### 1 9123-9 #### DEVANG CHU ([id number]) [facility] ([facility]) [address] [place] [address] 44991 MCHC (RBC) [Mass/Vol] 34.4 g/dL Normal 32.0-36.0 [facility] Comment on above: Performed By: #### 1 9123-9 #### DEVANG CHU ([id number]) [facility] ([facility]) [address] [place], [place] [id number] MCV (RBC) [Entitic vol] 87 fL Normal 80-100 [facility] Comment on above: Performed By: #### 1 9123-9 #### DEVANG CHU ([id number]) [facility] ([facility]) [address] [place] [address] 20766 Monocytes (Bld) [#/Vol] 0.44 x10*3/uL Normal 0.10-1.00 [facility] Comment on above: Performed By: #### 1 9123-9 #### DEVANG CHU ([id number]) [facility] ([facility]) [address] [place] [address] Monocytes/100 WBC (Bld) 4.9 % Normal 2.0-10.0 [facility] Comment on above: Performed By: #### 1 9123-9 #### DEVANG CHU ([id number]) [facility] ([facility]) [address] [place] [address] 40241 Neutrophils (Bld) [#/Vol] 5.57 x10*3/uL Normal 1.20-7.70 [facility] Comment on above: Result Comment: Perc ent differential counts (%) should be interpreted in the context of the absolute cell counts (cells/uL). Performed By: #### 1 9123-9 #### DEVANG CHU ([id number]) [facility] ([facility]) [address] [place] [address] 30212 Neutrophils/100 WBC (Bld) 61.6 % Normal 40.0-80.0 [facility] Comment on above: Performed By: #### 1 9123-9 #### DEVANG CHU ([id number]) [facility] ([facility]) [address] [place] [address] 24479 Nucleated RBC/100 WBC (Bld) [Ratio] 0.0 /100 WBCs Normal 0.0-0.0 [facility] Comment on above: Performed By: #### 1 9123-9 #### DEVANG CHU ([id number]) [facility] ([facility]) [address] [place] [address] 33225 Platelets (Bld) [#/Vol] 220 x10*3/uL Normal 150-450 [facility] Comment on above: Performed By: #### 1 9123-9 #### DEVANG CHU ([id number]) [facility] ([facility]) [address] [place] [address] 50488 RBC (Bld) [#/Vol] 5.43 x10*6/uL Normal 4.50-5.90 [facility] Comment on above: Performed By: #### 1 9123-9 #### DEVANG CHU ([id number]) [facility] ([facility]) [address] [place] [address] WBC (Bld) [#/Vol] 9.0 x10*3/uL Normal 4.4-11.3 [facility] Comment on above: Performed By: #### 1 9123-9 #### SIDDIQI KIMBERLEY ([id number]) [facility] ([facility]) [address] [place] [address] CT ABDOMEN PELVIS W IV CONTR Thong 03-26-2024 CT ABDOMEN PELVIS W IV CONTRAST Interpreted By: Cm Julian, STUDY: CT ABDOMEN PELVIS W IV CONTRAST; 03/26/2024 4:45 am INDICATION: Signs/Symptoms:abdominal pain. COMPARISON: CT abdomen and pelvis 03/24/2024 ACCESSION NUMBER(S): [id number] ORDERING CLINICIAN: GERARDO SAUNDERS TECHNIQUE: Axial CT images of the abdomen and pelvis with coronal and sagittal reconstructed images obtained after intravenous administration of contrast. FINDINGS: LOWER CHEST: Bibasilar atelectasis. BONES: No acute osseous abnormality. ABDOMINAL WALL: Similar calcification about along the left S1 nerve root (2/118). Rectus diastasis with small fat containing umbilical hernia. ( ABDOMEN: LIVER: Diffuse hepatic steatosis. Segment 2 simple cyst. BILE DUCTS: Unremarkable. GALLBLADDER: Unremarkable. PANCREAS:Unremarkable. SPLEEN: Stable splenomegaly measuring 15.9 cm in the AP dimension (2/40). ADRENALS: Unremarkable. KIDNEYS and URETERS: Unremarkable. VESSELS: Trace atherosclerosis. No aneurysm. LYMPH NODES: Unremarkable. RETROPERITONEUM/PERITONEUM : Unremarkable. BOWEL: Submucosal fatty infiltration is present in distal small bowel loops, decreased in prominence compared to prior exam. There is fecalization of a loop of small bowel measuring up to 2.5 cm (2/75) upstream to a focal area of luminal narrowing (2/71). PELVIS: REPRODUCTIVE ORGANS: Dystrophic calcifications in the prostate. BLADDER: Unremarkable. IMPRESSION: Compared to 03/24/2024, inflammatory changes of the distal small bowel loops have decreased. There is a focal loop of ileum which is fecalized upstream to a short segment of luminal narrowing. This may represent focal dysmotility versus a stricture. These findings are overall likely sequelae of recent bout of enteritis with differential diagnosis including inflammatory bowel disease. MACRO: None Signed by: Cm Julian 03/26/2024 5:26 AM Dictation workstation: [id number] [facility] CT Abdomen and Pelvis W cont satnam Drake 03-26-2024 Compared to 03/24/20 24, inflammatory changes of the distal small bowel loops have decreased. There is a focal loop of ileum which is fecalized upstream to a short segment of luminal narrowing. This may represent focal dysmotility versus a stricture. These findings are overall likely sequelae of recent bout of enteritis with differential diagnosis including inflammatory bowel disease. MACRO: None Signed by: Cm Julian 03/26/2024 5:26 AM Dictation workstation: [id number] MMODAL Interpreted By: Cm Vargas i, STUDY: CT ABDOMEN PELVIS W IV CONTRAST; 03/26/2024 4:45 am INDICATION: Signs/Symptoms:abdominal pain. COMPARISON: CT abdomen and pelvis 03/24/2024 ACCESSION NUMBER(S): [id number] ORDERING CLINICIAN: GERARDO SAUNDERS TECHNIQUE: Axial CT images of the abdomen and pelvis with coronal and sagittal reconstructed images obtained after intravenous administration of contrast. FINDINGS: LOWER CHEST: Bibasilar atelectasis. BONES: No acute osseous abnormality. ABDOMINAL WALL: Similar calcification about along the left S1 nerve root (2/118). Rectus diastasis with small fat containing umbilical hernia. ( ABDOMEN: LIVER: Diffuse hepatic steatosis. Segment 2 simple cyst. BILE DUCTS: Unremarkable. GALLBLADDER: Unremarkable. PANCREAS:Unremarkable. SPLEEN: Stable splenomegaly measuring 15.9 cm in the AP dimension (2/40). ADRENALS: Unremarkable. KIDNEYS and URETERS: Unremarkable. VESSELS: Trace atherosclerosis. No aneurysm. LYMPH NODES: Unremarkable. RETROPERITONEUM/PERITONEUM : Unremarkable. BOWEL: Submucosal fatty infiltration is present in distal small bowel loops, decreased in prominence compared to prior exam. There is fecalization of a loop of small bowel measuring up to 2.5 cm (2/75) upstream to a focal area of luminal narrowing (2/71). PELVIS: REPRODUCTIVE ORGANS: Dystrophic calcifications in the prostate. BLADDER: Unremarkable. MMODAL Cm Julian MD - 03/26/2024 Interpreted By: Cm Julian, STUDY: CT ABDOMEN PELVIS W IV CONTRAST; 03/26/2024 4:45 am INDICATION: Signs/Symptoms:abdominal pain. COMPARISON: CT abdomen and pelvis 03/24/2024 ACCESSION NUMBER(S): [id number] ORDERING CLINICIAN: GERARDO SAUNDERS TECHNIQUE: Axial CT images of the abdomen and pelvis with coronal and sagittal reconstructed images obtained after intravenous administration of contrast. FINDINGS: LOWER CHEST: Bibasilar atelectasis. BONES: No acute osseous abnormality. ABDOMINAL WALL: Similar calcification about along the left S1 nerve root (2/118). Rectus diastasis with small fat containing umbilical hernia. ( ABDOMEN: LIVER: Diffuse hepatic steatosis. Segment 2 simple cyst. BILE DUCTS: Unremarkable. GALLBLADDER: Unremarkable. PANCREAS:Unremarkable. SPLEEN: Stable splenomegaly measuring 15.9 cm in the AP dimension (2/40). ADRENALS: Unremarkable. KIDNEYS and URETERS: Unremarkable. VESSELS: Trace atherosclerosis. No aneurysm. LYMPH NODES: Unremarkable. RETROPERITONEUM/PERITONEUM : Unremarkable. BOWEL: Submucosal fatty infiltration is present in distal small bowel loops, decreased in prominence compared to prior exam. There is fecalization of a loop of small bowel measuring up to 2.5 cm (2/75) upstream to a focal area of luminal narrowing (2/71). PELVIS: REPRODUCTIVE ORGANS: Dystrophic calcifications in the prostate. BLADDER: Unremarkable. IMPRESSION: Compared to 03/24/2024, inflammatory changes of the distal small bowel loops have decreased. There is a focal loop of ileum which is fecalized upstream to a short segment of luminal narrowing. This may represent focal dysmotility versus a stricture. These findings are overall likely sequelae of recent bout of enteritis with differential diagnosis including inflammatory bowel disease. MACRO: None Signed by: Cm Julian 03/26/2024 5:26 AM Dictation workstation: [id number] [facility] Work Phone: Radiology Study observation (narrative) [facility] Work Phone: CT Abdomen and Pelvis W cont rast IVOrdered By: Cm Julian on 03-26-2024 [facility] Work Phone: Comprehensive metabolic 2000 panelon 03-26-2024 Albumin BCP dye [Mass/Vol] 3.9 g/dL 3.4 - 5.0 g/dL [facility] ALP [Catalytic activity/Vol] 79 U/L 33 - 120 U/L [facility] ALT With P-5'-P [Catalytic activity/Vol] 27 U/L 10 - 52 U/L [facility] Comment on above: Patients treated wit h Sulfasalazine may generate falsely decreased results for ALT. Anion gap [Moles/Vol] 10 mmol/L 10 - 20 mmol/L [facility] AST With P-5'-P [Catalytic activity/Vol] 17 U/L 9 - 39 U/L [facility] Bilirubin [Mass/Vol] 0.3 mg/dL 0.0 - 1.2 mg/dL [facility] Calcium [Mass/Vol] 8.9 mg/dL 8.6 - 10. 3 mg/dL [facility] Chloride [Moles/Vol] 108 mmol/L High 98 - 107 mmol/L [facility] CO2 [Moles/Vol] 27 mmol/L 21 - 32 mmol/L [facility] Creatinine [Mass/Vol] 1.27 mg/dL 0.50 - 1.30 mg/dL [facility] GFR/1.73 sq M.predicted among non-blacks MDRD (S/P/Bld) [Vol rate/Area] 69 mL/min/{1.73_m2} - PINF [facility] Comment on above: Calculations of bisi mated GFR are performed using the 2020 CKD-EPI Study Refit equation without the race variable for the IDMS-Traceable creatinine methods. https://jasn.asnjournals.org/content//ASN.28923837 88 Glucose [Mass/Vol] 95 mg/dL 74 - 99 mg/dL [facility] Interpretation and review of laboratory results Abnormal [facility] Potassium [Moles/Vol] 3.8 mmol/L 3.5 - 5.3 mmol/L [facility] Protein [Mass/Vol] 6.0 g/dL Low 6.4 - 8.2 g/dL [facility] Sodium [Moles/Vol] 141 mmol/L 136 - 145 mmol/L [facility] Urea nitrogen [Mass/Vol] 17 mg/dL 6 - 23 mg/dL [facility] Albumin BCP dye [Mass/Vol] 3.9 g/dL Normal 3.4-5.0 [facility] Comment on above: Performed By: #### 1 9123-9 #### DEVANG CHU ([id number]) [facility] ([facility]) [address] [place] [address] ALP [Catalytic activity/Vol] 79 U/L Normal 33-120 [facility] Comment on above: Performed By: #### 1 9123-9 #### DEVANG CHU ([id number]) [facility] ([facility]) [address] [place] [address] ALT With P-5'-P [Catalytic activity/Vol] 27 U/L Normal 10-52 [facility] Comment on above: Result Comment: Marcela ents treated with Sulfasalazine may generate falsely decreased results for ALT. Performed By: #### 1 9123-9 #### DEVANG CHU ([id number]) [facility] ([facility]) [address] [place] [address] Anion gap [Moles/Vol] 10 mmol/L Normal 10-20 [facility] Comment on above: Performed By: #### 1 9123-9 #### DEVANG CHU ([id number]) [facility] ([facility]) [address] [place] [address] AST With P-5'-P [Catalytic activity/Vol] 17 U/L Normal 9-39 [facility] Comment on above: Performed By: #### 1 9123-9 #### DEVANG CHU ([id number]) [facility] ([facility]) [address] [place] [address] Bilirubin [Mass/Vol] 0.3 mg/dL Normal 0.0-1.2 [facility] Comment on above: Performed By: #### 1 9123-9 #### DEVANG CHU ([id number]) [facility] ([facility]) [address] [place] [address] Calcium [Mass/Vol] 8.9 mg/dL Normal 8.6-10.3 [facility] Comment on above: Performed By: #### 1 9123-9 #### DEVANG CHU ([id number]) [facility] ([facility]) [address] [place] [address] Chloride [Moles/Vol] 108 mmol/L High 98-107 [facility] Comment on above: Performed By: #### 1 9123-9 #### DEVANG CHU ([id number]) [facility] ([facility]) [facility] [place] [address] CO2 [Moles/Vol] 27 mmol/L Normal 21-32 [facility] Comment on above: Performed By: #### 1 9123-9 #### DEVANG CHU ([id number]) [facility] ([facility]) [address] [place] [address] 28034 Creatinine [Mass/Vol] 1.27 mg/dL Normal 0.50-1.30 [facility] Comment on above: Performed By: #### 1 9123-9 #### DEVANG CHU ([id number]) [facility] ([facility]) [address] [place] [address] 75487 Glomerular filtration rate/1.73 sq M.predicted 69 mL/min/1.73m*2 Normal >60 [facility] Comment on above: Result Comment: Calc ulations of estimated GFR are performed using the 2020 CKD-EPI Study Refit equation without the race variable for the IDMS-Traceable creatinine methods. https://jasn.asnjournals.org/content//ASN.36631687 88 Performed By: #### 1 9123-9 #### DEVANG CHU ([id number]) [facility] ([facility]) [facility] [place] [address] Glucose [Mass/Vol] 95 mg/dL Normal 74-99 [facility] Comment on above: Performed By: #### 1 9123-9 #### DEVANG CHU ([id number]) [facility] ([facility]) [facility] [place] [address] Potassium [Moles/Vol] 3.8 mmol/L Normal 3.5-5.3 [facility] Comment on above: Performed By: #### 1 9123-9 #### DEVANG CHU ([id number]) [facility] ([facility]) [facility] [place] [address] Protein [Mass/Vol] 6.0 g/dL Low 6.4-8.2 [facility] Comment on above: Performed By: #### 1 9123-9 #### DEVANG CHU ([id number]) [facility] ([facility]) [address] [place] [address] Sodium [Moles/Vol] 141 mmol/L Normal 136-145 [facility] Comment on above: Performed By: #### 1 9123-9 #### DEVANG CHU ([id number]) [facility] ([facility]) [address] [place] [address] 50740 Urea nitrogen [Mass/Vol] 17 mg/dL Normal 6-23 [facility] Comment on above: Performed By: #### 1 9123-9 #### DEVANG CHU ([id number]) [facility] ([facility]) [address] [place] [address] 57190 Lactateon 03-26-2024 Lactate [Moles/Vol] 0.9 mmol/L 0.4 - 2. 0 mmol/L [facility] Lactate [Moles/Vol] 0.9 mmol/L Normal 0.4-2.0 [facility] Comment on above: Order Comment: Venip uncture immediately after or during the administration of Metamizole may lead to falsely low results. Testing should be performed immediately prior to Metamizole dosing. Performed By: #### 1 9123-9 #### DEVANG CHU ([id number]) [facility] ([facility]) [address] [place] [address] 92459 Lactate [Moles/Vol]on 2023 Interpretation and review of laboratory results Normal [facility] Venipuncture immedia tely after or during the administration of Metamizole may lead to falsely low results. Testing should be performed immediately prior to Metamizole dosing. [facility] Lipaseon 10-02-2024 Lipase [Catalytic activity/Vol] 21 U/L 9 - 82 U/L [facility] Lipase [Catalytic activity/V ol]on 03-26-2024 Interpretation and review of laboratory results Normal [facility] Venipuncture immedia tely after or during the administration of Metamizole may lead to falsely low results. Testing should be performed immediately prior to Metamizole dosing. [facility] No Panel Informationon 03-26 [facility] Triacylglycerol lipaseon Lipase [Catalytic activity/Vol] 21 U/L Normal -82 [facility] Comment on above: Order Comment: Venip uncture immediately after or during the administration of Metamizole may lead to falsely low results. Testing should be performed immediately prior to Metamizole dosing. Performed By: #### 1 9123-9 #### SIDDIQI KIMBERLEY ([id number]) [facility] ([facility]) [address] [place] [address] Urinalysis complete W Reflex Culture panel (U)on 03-26-2024 Appearance (U) Clear Clear [facility] Bilirubin (U) [Mass/Vol] Negative NEGATIVE [facility] Color (U) Yellow Light-Yellow , Yellow, Dark-Yellow [facility] Glucose Auto test strip (U) [Mass/Vol] Normal Normal mg/dL [facility] Interpretation and review of laboratory results Abnormal [facility] Ketones (U) [Mass/Vol] Negative NEGATIVE mg/dL [facility] Leukocyte esterase Auto test strip Ql (U) Negative NEGATIVE [facility] Mucus Auto (Urine sed) [#/Area] 4+ Reference range not established. /LPF [facility] Nitrite Auto test strip Ql (U) Negative NEGATIVE [facility] pH (U) 6.0 [pH] 5.0, 5.5, 6.0, 6.5, 7.0, 7.5, 8.0 [facility] Protein (U) [Mass/Vol] 30 (1+) Abnormal NEGATIVE, 10 (TRACE), 20 (TRACE) mg/dL [facility] RBC (U) [#/Vol] 0.03 (TRACE) Abnormal NEGATIVE [facility] RBC Auto (Urine sed) [#/Area] 11-20 Abnormal NONE, 1-2, 3-5 /HPF [facility] Specific gravity (U) [Rel density] 1.040 Abnormal 1.005 - 1.035 [facility] Urobilinogen (U) [Mass/Vol] 4 (2+) Abnormal Normal mg/dL [facility] Comment on above: Some pigments and me dications may cause a false positive urobilinogen. WBC Auto (Urine sed) [#/Area] 1-5 1-5, NONE /HPF [facility] Appearance (U) Clear Normal Clear [facility] Comment on above: Performed By: #### 1 9123-9 #### DEVANG CHU ([id number]) [facility] ([facility]) [address] [place] [address] Bilirubin (U) [Mass/Vol] Negative Normal NEGATIVE [facility] Comment on above: Performed By: #### 1 9123-9 #### DEVANG CHU ([id number]) [facility] ([facility]) [address] [place] [address] 11923 Color (U) Yellow Normal Light-Yellow , Yellow, Dark-Yellow [facility] Comment on above: Performed By: #### 1 9123-9 #### DEVANG CHU ([id number]) [facility] ([facility]) [address] [place] [address] 29141 Glucose Auto test strip (U) [Mass/Vol] Normal Normal Normal [facility] Comment on above: Performed By: #### 1 9123-9 #### DEVANG CHU ([id number]) [facility] ([facility]) [address] [place] [address] 28928 Ketones (U) [Mass/Vol] Negative Normal NEGATIVE [facility] Comment on above: Performed By: #### 1 9123-9 #### DEVANG CHU ([id number]) [facility] ([facility]) [address] [place] [address] 71529 Leukocyte esterase Auto test strip Ql (U) Negative Normal NEGATIVE [facility] Comment on above: Performed By: #### 1 9123-9 #### DEVANG CUH ([id number]) [facility] ([facility]) [address] [place] [address] 62189 Mucus Auto (Urine sed) [#/Area] 4+ /LPF Normal Reference range not established. [facility] Comment on above: Performed By: #### 1 9123-9 #### DEVANG CHU ([id number]) [facility] ([facility]) [address] [place] [address] 91198 Nitrite Auto test strip Ql (U) Negative Normal NEGATIVE [facility] Comment on above: Performed By: #### 1 9123-9 #### DEVANG CHU ([id number]) [facility] ([facility]) [address] [place] [address] 10842 pH (U) 6.0 [pH] Normal 5.0, 5.5, 6.0, 6.5, 7.0, 7.5, 8.0 [facility] Comment on above: Performed By: #### 1 9123-9 #### DEVANG CHU ([id number]) [facility] ([facility]) [address] [place] [address] 97707 Protein (U) [Mass/Vol] 30 (1+) Abnormal NEGATIVE, 10 (TRACE), 20 (TRACE) [facility] Comment on above: Performed By: #### 1 9123-9 #### DEVANG CHU ([id number]) [facility] ([facility]) [address] [place] [address] 71015 RBC (U) [#/Vol] 0.03 (TRACE) Abnormal NEGATIVE [facility] Comment on above: Performed By: #### 1 9123-9 #### DEVANG CHU ([id number]) [facility] ([facility]) [address] [place] [address] 69555 RBC Auto (Urine sed) [#/Area] 11-20 Abnormal NONE, 1-2, 3-5 [facility] Comment on above: Performed By: #### 1 9123-9 #### DEVANG CHU ([id number]) [facility] ([facility]) [address] [place] [address] Specific gravity (U) [Rel density] 1.040 Normal 1.005-1.035 [facility] Comment on above: Performed By: #### 1 9123-9 #### DEVANG CHU ([id number]) [facility] ([facility]) [address] [place] [address] Urobilinogen (U) [Mass/Vol] 4 (2+) Abnormal Normal [facility] Comment on above: Result Comment: Some pigments and medications may cause a false positive urobilinogen. Performed By: #### 1 9123-9 #### DEVANG CHU ([id number]) [facility] ([facility]) [address] [place] [address] WBC Auto (Urine sed) [#/Area] 1-5 Normal 1-5, NONE [facility] Comment on above: Performed By: #### 1 9123-9 #### DEVANG CHU ([id number]) [facility] ([facility]) [address] [place], [place] [id number] Basic metabolic 2000 panelon 03-24-2024 Anion gap [Moles/Vol] 13 mmol/L 10 - 20 mmol/L [facility] Calcium [Mass/Vol] 9.9 mg/dL 8.6 - 10. 3 mg/dL [facility] Chloride [Moles/Vol] 107 mmol/L 98 - 107 mmol/L [facility] CO2 [Moles/Vol] 23 mmol/L 21 - 32 mmol/L [facility] Creatinine [Mass/Vol] 1.21 mg/dL 0.50 - 1.30 mg/dL [facility] GFR/1.73 sq M.predicted among non-blacks MDRD (S/P/Bld) [Vol rate/Area] 73 mL/min/{1.73_m2} - PINF [facility] Comment on above: Calculations of bisi mated GFR are performed using the 2020 CKD-EPI Study Refit equation without the race variable for the IDMS-Traceable creatinine methods. https://jasn.asnjournals.org/content//ASN.79710565 88 Glucose [Mass/Vol] 90 mg/dL 74 - 99 mg/dL [facility] Potassium [Moles/Vol] 3.9 mmol/L 3.5 - 5.3 mmol/L [facility] Sodium [Moles/Vol] 139 mmol/L 136 - 145 mmol/L [facility] Urea nitrogen [Mass/Vol] 19 mg/dL 6 - 23 mg/dL [facility] Anion gap [Moles/Vol] 13 mmol/L Normal 10-20 [facility] Comment on above: Performed By: #### 2 4321-2 #### DEVANG CHU ([id number]) [facility] ([facility]) [address] [place] [address] 11104 Calcium [Mass/Vol] 9.9 mg/dL Normal 8.6-10.3 [facility] Comment on above: Performed By: #### 2 4321-2 #### DEVANG CHU ([id number]) [facility] ([facility]) [address] [place] [address] 36887 Chloride [Moles/Vol] 107 mmol/L Normal 98-107 [facility] Comment on above: Performed By: #### 2 4321-2 #### DEVANG CHU ([id number]) [facility] ([facility]) [address] [place] [address] 90659 CO2 [Moles/Vol] 23 mmol/L Normal 21-32 [facility] Comment on above: Performed By: #### 2 4321-2 #### DEVANG CHU ([id number]) [facility] ([facility]) [address] [place] [address] 00906 Creatinine [Mass/Vol] 1.21 mg/dL Normal 0.50-1.30 [facility] Comment on above: Performed By: #### 2 4321-2 #### DEVANG CHU ([id number]) [facility] ([facility]) [address] [place] [address] 44585 Glomerular filtration rate/1.73 sq M.predicted 73 mL/min/1.73m*2 Normal >60 [facility] Comment on above: Result Comment: Calc ulations of estimated GFR are performed using the 2020 CKD-EPI Study Refit equation without the race variable for the IDMS-Traceable creatinine methods. https://jasn.asnjournals.org/content//ASN.44229790 88 Performed By: #### 2 4321-2 #### DEVANG CHU ([id number]) [facility] ([facility]) [address] [place] [address] 52248 Glucose [Mass/Vol] 90 mg/dL Normal 74-99 [facility] Comment on above: Performed By: #### 2 4321-2 #### DEVANG CHU ([id number]) [facility] ([facility]) [address] [place] [address] 01479 Potassium [Moles/Vol] 3.9 mmol/L Normal 3.5-5.3 [facility] Comment on above: Performed By: #### 2 4321-2 #### DEVANG CHU ([id number]) [facility] ([facility]) [address] [place] [address] 75632 Sodium [Moles/Vol] 139 mmol/L Normal 136-145 [facility] Comment on above: Performed By: #### 2 4321-2 #### DEVANG CHU ([id number]) [facility] ([facility]) [address] [place] [address] 26762 Urea nitrogen [Mass/Vol] 19 mg/dL Normal 6-23 [facility] Comment on above: Performed By: #### 2 4321-2 #### DEVANG CHU ([id number]) [facility] ([facility]) [address] [place] [address] 04861 C. difficile toxin A+B tcdA+ tcdB genes RAJANI+probe Ql (Stl)on 03-24-2024 Interpretation and review of laboratory results Normal [facility] This test is an FDA-cleared real-time PCR assay for detection of toxigenic C. difficile DNA from unprocessed liquid or unformed stool specimens that have not undergone nucleic acid extraction in symptomatic patients with potential C. difficile infection (CDI). A positive result may indicate colonization, and clinical assessment is required for the diagnosis of CDI. This test cannot be performed on formed stools or used as a test of cure, and should not be performed more than once per 7 days. [facility] C. difficile, PCRon 03-24-20 C. difficile toxin A+B tcdA+tcdB genes RAJANI+probe Ql (Stl) Not detected Not Detected [facility] CBC W Auto Differential pane l (Bld)on 03-24-2024 Basophils (Bld) [#/Vol] 0.07 10*3/uL [facility] Basophils/100 WBC (Bld) 0.7 % 0.0 - 2.0 % [facility] Eosinophils (Bld) [#/Vol] 0.20 10*3/uL [facility] Eosinophils/100 WBC (Bld) 1.9 % 0.0 - 6.0 % [facility] Erythrocyte distribution width (RBC) [Ratio] 13.4 % 11.5 - 14.5 % [facility] Hematocrit (Bld) [Volume fraction] 54.3 % High 41.0 - 52.0 % [facility] Hemoglobin (Bld) [Mass/Vol] 18.9 g/dL High 13.5 - 17.5 g/dL [facility] Immature granulocytes (Bld) [#/Vol] 0.04 10*3/uL [facility] Immature granulocytes/100 WBC (Bld) 0.4 % 0.0 - 0.9 % [facility] Comment on above: Immature Granulocyte Count (IG) includes promyelocytes, myelocytes and metamyelocytes but does not include bands. Percent differential counts (%) should be interpreted in the context of the absolute cell counts (cells/UL). Interpretation and review of laboratory results Abnormal [facility] Lymphocytes (Bld) [#/Vol] 2.07 10*3/uL [facility] Lymphocytes/100 WBC (Bld) 20.1 % 13.0 - 44.0 % [facility] MCH (RBC) [Entitic mass] 30.3 pg 26.0 - 34.0 pg [facility] MCHC (RBC) [Mass/Vol] 34.8 g/dL 32.0 - 36.0 g/dL [facility] MCV (RBC) [Entitic vol] 87 fL 80 - 100 fL [facility] Monocytes (Bld) [#/Vol] 0.69 10*3/uL [facility] Monocytes/100 WBC (Bld) 6.7 % 2.0 - 10.0 % [facility] Neutrophils (Bld) [#/Vol] 7.22 10*3/uL [facility] Comment on above: Percent differential counts (%) should be interpreted in the context of the absolute cell counts (cells/uL). Neutrophils/100 WBC (Bld) 70.2 % 40.0 - 80.0 % [facility] Nucleated RBC/100 WBC (Bld) [Ratio] 0.0 % [facility] Platelets (Bld) [#/Vol] 209 10*3/uL [facility] RBC (Bld) [#/Vol] 6.23 10*6/uL High [facility] WBC (Bld) [#/Vol] 10.3 10*3/uL [facility] Basophils (Bld) [#/Vol] 0.07 x10*3/uL Normal 0.00-0.10 [facility] Comment on above: Performed By: #### 5 7021-8 #### DEVANG CHU ([id number]) [facility] ([facility]) [address] [place] [address] 50715 Basophils/100 WBC (Bld) 0.7 % Normal 0.0-2.0 [facility] Comment on above: Performed By: #### 5 7021-8 #### DEVANG CHU ([id number]) [facility] ([facility]) [address] [place] [address] 23903 Eosinophils (Bld) [#/Vol] 0.20 x10*3/uL Normal 0.00-0.70 [facility] Comment on above: Performed By: #### 5 7021-8 #### DEVANG CHU ([id number]) [facility] ([facility]) [address] [place] [address] 01076 Eosinophils/100 WBC (Bld) 1.9 % Normal 0.0-6.0 [facility] Comment on above: Performed By: #### 5 7021-8 #### DEVANG CHU ([id number]) [facility] ([facility]) [address] [place] [address] 79043 Erythrocyte distribution width (RBC) [Ratio] 13.4 % Normal 11.5-14.5 [facility] Comment on above: Performed By: #### 5 7021-8 #### DEVANG CHU ([id number]) [facility] ([facility]) [address] [place] [address] 11766 Hematocrit (Bld) [Volume fraction] 54.3 % High 41.0-52.0 [facility] Comment on above: Performed By: #### 5 7021-8 #### DEVANG CHU ([id number]) [facility] ([facility]) [address] [place] [address] 59307 Hemoglobin (Bld) [Mass/Vol] 18.9 g/dL High 13.5-17.5 [facility] Comment on above: Performed By: #### 5 7021-8 #### DEVANG CHU ([id number]) [facility] ([facility]) [address] [place] [address] 10830 Immature granulocytes (Bld) [#/Vol] 0.04 x10*3/uL Normal 0.00-0.70 [facility] Comment on above: Performed By: #### 5 7021-8 #### DEVANG CHU ([id number]) [facility] ([facility]) [address] [place] [address] 69842 Immature granulocytes/100 WBC (Bld) 0.4 % Normal 0.0-0.9 [facility] Comment on above: Result Comment: Keena ture Granulocyte Count (IG) includes promyelocytes, myelocytes and metamyelocytes but does not include bands. Percent differential counts (%) should be interpreted in the context of the absolute cell counts (cells/UL). Performed By: #### 5 7021-8 #### DEVANG CHU ([id number]) [facility] ([facility]) [address] [place] [address] 24235 Lymphocytes (Bld) [#/Vol] 2.07 x10*3/uL Normal 1.20-4.80 [facility] Comment on above: Performed By: #### 5 7021-8 #### DEVANG CHU ([id number]) [facility] ([facility]) [address] [place] [address] 84099 Lymphocytes/100 WBC (Bld) 20.1 % Normal 13.0-44.0 [facility] Comment on above: Performed By: #### 5 7021-8 #### DEVANG CHU ([id number]) [facility] ([facility]) [address] [place] [address] 06659 MCH (RBC) [Entitic mass] 30.3 pg Normal 26.0-34.0 [facility] Comment on above: Performed By: #### 5 7021-8 #### DEVANG CHU ([id number]) [facility] ([facility]) [address] [place] [address] 07272 MCHC (RBC) [Mass/Vol] 34.8 g/dL Normal 32.0-36.0 [facility] Comment on above: Performed By: #### 5 7021-8 #### DEVANG CHU ([id number]) [facility] ([facility]) [address] [place] [address] 84051 MCV (RBC) [Entitic vol] 87 fL Normal 80-100 [facility] Comment on above: Performed By: #### 5 7021-8 #### DEVANG CHU ([id number]) [facility] ([facility]) [address] [place] [address] 60259 Monocytes (Bld) [#/Vol] 0.69 x10*3/uL Normal 0.10-1.00 [facility] Comment on above: Performed By: #### 5 7021-8 #### DEVANG CHU ([id number]) [facility] ([facility]) [address] [place] [address] 12713 Monocytes/100 WBC (Bld) 6.7 % Normal 2.0-10.0 [facility] Comment on above: Performed By: #### 5 7021-8 #### DEVANG CHU ([id number]) [facility] ([facility]) [address] [place] [address] 11855 Neutrophils (Bld) [#/Vol] 7.22 x10*3/uL Normal 1.20-7.70 [facility] Comment on above: Result Comment: Perc ent differential counts (%) should be interpreted in the context of the absolute cell counts (cells/uL). Performed By: #### 5 7021-8 #### DEVANG CHU ([id number]) [facility] ([facility]) [address] [place] [address] 09197 Neutrophils/100 WBC (Bld) 70.2 % Normal 40.0-80.0 [facility] Comment on above: Performed By: #### 5 7021-8 #### DEVANG CHU ([id number]) [facility] ([facility]) [address] [place] [address] 38675 Nucleated RBC/100 WBC (Bld) [Ratio] 0.0 /100 WBCs Normal 0.0-0.0 [facility] Comment on above: Performed By: #### 5 7021-8 #### DEVANG CHU ([id number]) [facility] ([facility]) [address] [place] [address] 08202 Platelets (Bld) [#/Vol] 209 x10*3/uL Normal 150-450 [facility] Comment on above: Performed By: #### 5 7021-8 #### DEVANG CHU ([id number]) [facility] ([facility]) [address] [place] [address] 62502 RBC (Bld) [#/Vol] 6.23 x10*6/uL High 4.50-5.90 [facility] Comment on above: Performed By: #### 5 7021-8 #### DEVANG CHU ([id number]) [facility] ([facility]) [address] [place] [address] 12330 WBC (Bld) [#/Vol] 10.3 x10*3/uL Normal 4.4-11.3 [facility] Comment on above: Performed By: #### 5 7021-8 #### SIDDIQI KIMBERLEY ([id number]) [facility] ([facility]) [address] [place] [address] CT ABDOMEN PELVIS W IV CONTR Thong 03-24-2024 CT ABDOMEN PELVIS W IV CONTRAST Interpreted By: Serena Campbell, STUDY: CT ABDOMEN PELVIS W IV CONTRAST; 03/24/2024 1:54 pm INDICATION: Cramping abdominal pain for 1-1/2 days with diarrhea and emesis COMPARISON: None. ACCESSION NUMBER(S): [id number] ORDERING CLINICIAN: BERTO DIANA TECHNIQUE: CT of the abdomen and pelvis was performed. Standard contiguous axial images were obtained at 3 mm slice thickness through the abdomen and pelvis. Coronal and sagittal reconstructions at 3 mm slice thickness were performed. 69 mL of Omnipaque 350 was injected intravenously for the examination. FINDINGS: LOWER CHEST: The visualized lung base is unremarkable. The heart is normal in size without pericardial effusion. No pleural effusion is present. Visualized distal esophagus appears normal. ABDOMEN: LIVER: The liver is enlarged measuring 21.1 cm in superior to inferior dimension. Fatty infiltration of the liver is present. There is a small amount of focal fatty sparing within the liver adjacent to the gallbladder fossa. Within the lateral segment of the left hepatic lobe, there is a 1.4 cm hypodense liver lesion with mean Hounsfield unit measurement of 6 HU consistent with hepatic cyst. BILE DUCTS: The intrahepatic and extrahepatic ducts are not dilated. GALLBLADDER: No calcified stones. No wall thickening. PANCREAS: The pancreas appears unremarkable. SPLEEN: Spleen is enlarged measuring 15 cm in greatest length. No space-occupying splenic lesion is present. ADRENAL GLANDS: Bilateral adrenal glands appear normal. KIDNEYS AND URETERS: The kidneys are normal in size and enhance symmetrically. No hydroureteronephrosis or nephroureterolithiasis is identified. PELVIS: BLADDER: The urinary bladder appears normal without abnormal wall thickening. REPRODUCTIVE ORGANS: The prostate is not enlarged. BOWEL: The appendix is normally visualized. No abnormality of the stomach or large intestine is seen. However, the terminal ileum is normally visualized as well. In fact, I would estimate that the distal 12-15 cm segment of small bowel including the terminal ileum is normal in appearance. Just upstream to this, there is a very long segment of small bowel seen exhibiting mural edema and abnormal circumferential bowel wall thickening with mild vasa recta hyperemia. The more proximal small bowel is uninvolved. The involved small bowel is mildly dilated measuring up to 3 cm in diameter. VESSELS: The aorta and IVC appear normal. PERITONEUM/RETROPERITONEUM /LYMPH NODES: A trace amount free fluid is present within the pelvis. No free intraperitoneal air is seen. No lymphadenopathy is evident. BONES AND ABDOMINAL WALL: The abdominal wall is unremarkable. There is no acute osseous abnormality seen. IMPRESSION: 1. Hepatosplenomegaly with a 1.4 cm cyst in left hepatic lobe. 2. Fatty liver with a small amount of focal fatty sparing adjacent to the gallbladder 3. There is circumferential bowel wall thickening and submucosal edema with mild hyperemia of the vasa recta seen involving very long segment small bowel with sparing of the proximal roughly 12-15 cm segment of the distal small bowel including terminal ileum. I suspect that this is most likely from an infectious enteritis with active inflammation. A small amount of free fluid within the pelvis is present. MACRO: None Signed by: Serena Campbell 03/24/2024 2:55 PM Dictation workstation: [id number] [facility] CT Abdomen and Pelvis W cont rast Noelle 03-24-2024 1. Hepatosplenomegal y with a 1.4 cm cyst in left hepatic lobe. 2. Fatty liver with a small amount of focal fatty sparing adjacent to the gallbladder 3. There is circumferential bowel wall thickening and submucosal edema with mild hyperemia of the vasa recta seen involving very long segment small bowel with sparing of the proximal roughly 12-15 cm segment of the distal small bowel including terminal ileum. I suspect that this is most likely from an infectious enteritis with active inflammation. A small amount of free fluid within the pelvis is present. MACRO: None Signed by: Serena Campbell 03/24/2024 2:55 PM Dictation workstation: [id number] MMODAL Interpreted By: Serena Campbell, STUDY: CT ABDOMEN PELVIS W IV CONTRAST; 03/24/2024 1:54 pm INDICATION: Cramping abdominal pain for 1-1/2 days with diarrhea and emesis COMPARISON: None. ACCESSION NUMBER(S): [id number] ORDERING CLINICIAN: BERTO DIANA TECHNIQUE: CT of the abdomen and pelvis was performed. Standard contiguous axial images were obtained at 3 mm slice thickness through the abdomen and pelvis. Coronal and sagittal reconstructions at 3 mm slice thickness were performed. 69 mL of Omnipaque 350 was injected intravenously for the examination. FINDINGS: LOWER CHEST: The visualized lung base is unremarkable. The heart is normal in size without pericardial effusion. No pleural effusion is present. Visualized distal esophagus appears normal. ABDOMEN: LIVER: The liver is enlarged measuring 21.1 cm in superior to inferior dimension. Fatty infiltration of the liver is present. There is a small amount of focal fatty sparing within the liver adjacent to the gallbladder fossa. Within the lateral segment of the left hepatic lobe, there is a 1.4 cm hypodense liver lesion with mean Hounsfield unit measurement of 6 HU consistent with hepatic cyst. BILE DUCTS: The intrahepatic and extrahepatic ducts are not dilated. GALLBLADDER: No calcified stones. No wall thickening. PANCREAS: The pancreas appears unremarkable. SPLEEN: Spleen is enlarged measuring 15 cm in greatest length. No space-occupying splenic lesion is present. ADRENAL GLANDS: Bilateral adrenal glands appear normal. KIDNEYS AND URETERS: The kidneys are normal in size and enhance symmetrically. No hydroureteronephrosis or nephroureterolithiasis is identified. PELVIS: BLADDER: The urinary bladder appears normal without abnormal wall thickening. REPRODUCTIVE ORGANS: The prostate is not enlarged. BOWEL: The appendix is normally visualized. No abnormality of the stomach or large intestine is seen. However, the terminal ileum is normally visualized as well. In fact, I would estimate that the distal 12-15 cm segment of small bowel including the terminal ileum is normal in appearance. Just upstream to this, there is a very long segment of small bowel seen exhibiting mural edema and abnormal circumferential bowel wall thickening with mild vasa recta hyperemia. The more proximal small bowel is uninvolved. The involved small bowel is mildly dilated measuring up to 3 cm in diameter. VESSELS: The aorta and IVC appear normal. PERITONEUM/RETROPERITONEUM /LYMPH NODES: A trace amount free fluid is present within the pelvis. No free intraperitoneal air is seen. No lymphadenopathy is evident. BONES AND ABDOMINAL WALL: The abdominal wall is unremarkable. There is no acute osseous abnormality seen. MMODAL Serena Campbell MD - 03/24/2024 Interpreted By: Serena Campbell, STUDY: CT ABDOMEN PELVIS W IV CONTRAST; 03/24/2024 1:54 pm INDICATION: Cramping abdominal pain for 1-1/2 days with diarrhea and emesis COMPARISON: None. ACCESSION NUMBER(S): [id number] ORDERING CLINICIAN: BERTO DIANA TECHNIQUE: CT of the abdomen and pelvis was performed. Standard contiguous axial images were obtained at 3 mm slice thickness through the abdomen and pelvis. Coronal and sagittal reconstructions at 3 mm slice thickness were performed. 69 mL of Omnipaque 350 was injected intravenously for the examination. FINDINGS: LOWER CHEST: The visualized lung base is unremarkable. The heart is normal in size without pericardial effusion. No pleural effusion is present. Visualized distal esophagus appears normal. ABDOMEN: LIVER: The liver is enlarged measuring 21.1 cm in superior to inferior dimension. Fatty infiltration of the liver is present. There is a small amount of focal fatty sparing within the liver adjacent to the gallbladder fossa. Within the lateral segment of the left hepatic lobe, there is a 1.4 cm hypodense liver lesion with mean Hounsfield unit measurement of 6 HU consistent with hepatic cyst. BILE DUCTS: The intrahepatic and extrahepatic ducts are not dilated. GALLBLADDER: No calcified stones. No wall thickening. PANCREAS: The pancreas appears unremarkable. SPLEEN: Spleen is enlarged measuring 15 cm in greatest length. No space-occupying splenic lesion is present. ADRENAL GLANDS: Bilateral adrenal glands appear normal. KIDNEYS AND URETERS: The kidneys are normal in size and enhance symmetrically. No hydroureteronephrosis or nephroureterolithiasis is identified. PELVIS: BLADDER: The urinary bladder appears normal without abnormal wall thickening. REPRODUCTIVE ORGANS: The prostate is not enlarged. BOWEL: The appendix is normally visualized. No abnormality of the stomach or large intestine is seen. However, the terminal ileum is normally visualized as well. In fact, I would estimate that the distal 12-15 cm segment of small bowel including the terminal ileum is normal in appearance. Just upstream to this, there is a very long segment of small bowel seen exhibiting mural edema and abnormal circumferential bowel wall thickening with mild vasa recta hyperemia. The more proximal small bowel is uninvolved. The involved small bowel is mildly dilated measuring up to 3 cm in diameter. VESSELS: The aorta and IVC appear normal. PERITONEUM/RETROPERITONEUM /LYMPH NODES: A trace amount free fluid is present within the pelvis. No free intraperitoneal air is seen. No lymphadenopathy is evident. BONES AND ABDOMINAL WALL: The abdominal wall is unremarkable. There is no acute osseous abnormality seen. IMPRESSION: 1. Hepatosplenomegaly with a 1.4 cm cyst in left hepatic lobe. 2. Fatty liver with a small amount of focal fatty sparing adjacent to the gallbladder 3. There is circumferential bowel wall thickening and submucosal edema with mild hyperemia of the vasa recta seen involving very long segment small bowel with sparing of the proximal roughly 12-15 cm segment of the distal small bowel including terminal ileum. I suspect that this is most likely from an infectious enteritis with active inflammation. A small amount of free fluid within the pelvis is present. MACRO: None Signed by: Serena Campbell 03/24/2024 2:55 PM Dictation workstation: [id number] [facility] Work Phone: Radiology Study observation (narrative) [facility] Work Phone: CT Abdomen and Pelvis W cont rast IVOrdered By: Serena Campbell on 03-24-2024 [facility] Work Phone: Clostridioides difficile tox in A+B tcdA+tcdB geneson 03-24-2024 C. difficile toxin A+B tcdA+tcdB genes RAJANI+probe Ql (Stl) Clostridioides difficile toxin A+B tcdA+tcdB genes Not Detected Normal Not Detected [facility] Comment on above: Order Comment: This test is an FDA-cleared real-time PCR assay for detection of toxigenic C. difficile DNA from unprocessed liquid or unformed stool specimens that have not undergone nucleic acid extraction in symptomatic patients with potential C. difficile infection (CDI). A positive result may indicate colonization, and clinical assessment is required for the diagnosis of CDI. This test cannot be performed on formed stools or used as a test of cure, and should not be performed more than once per 7 days. Performed By: #### 8 0685-1 #### SIDDIQI KIMBERLEY ([id number]) [facility] ([facility]) [facility] [place] [address] Hemoglobin.gastrointestinal^ 1st specimenon 03-24-2024 Hemoglobin.gastroin testinal spec 1 Ql (Stl) Negative Normal Negative [facility] Comment on above: Performed By: #### 1 9123-9 #### DEVANG CHU ([id number]) [facility] ([facility]) [address] [place] [address] Hepatic function 2000 panelo n 03-24-2024 Albumin BCP dye [Mass/Vol] 4.4 g/dL 3.4 - 5.0 g/dL [facility] ALP [Catalytic activity/Vol] 73 U/L 33 - 120 U/L [facility] ALT With P-5'-P [Catalytic activity/Vol] 33 U/L 10 - 52 U/L [facility] Comment on above: Patients treated wit h Sulfasalazine may generate falsely decreased results for ALT. AST With P-5'-P [Catalytic activity/Vol] 20 U/L 9 - 39 U/L [facility] Bilirubin [Mass/Vol] 0.7 mg/dL 0.0 - 1.2 mg/dL [facility] Bilirubin.direct [Mass/Vol] 0.1 mg/dL 0.0 - 0.3 mg/dL [facility] Protein [Mass/Vol] 6.9 g/dL 6.4 - 8.2 g/dL [facility] Albumin BCP dye [Mass/Vol] 4.4 g/dL Normal 3.4-5.0 [facility] Comment on above: Performed By: #### 2 4325-3 #### DEVANG CHU ([id number]) [facility] ([facility]) [address] [place] [address] ALP [Catalytic activity/Vol] 73 U/L Normal 33-120 [facility] Comment on above: Performed By: #### 2 4325-3 #### DEVANG CHU ([id number]) [facility] ([facility]) [address] [place] [address] ALT With P-5'-P [Catalytic activity/Vol] 33 U/L Normal 10-52 [facility] Comment on above: Result Comment: Marcela ents treated with Sulfasalazine may generate falsely decreased results for ALT. Performed By: #### 2 4325-3 #### DEVANG CHU ([id number]) [facility] ([facility]) [address] [place] [address] 28496 AST With P-5'-P [Catalytic activity/Vol] 20 U/L Normal 9-39 [facility] Comment on above: Performed By: #### 2 4325-3 #### DEVANG CHU ([id number]) [facility] ([facility]) [address] [place] [address] 55106 Bilirubin [Mass/Vol] 0.7 mg/dL Normal 0.0-1.2 [facility] Comment on above: Performed By: #### 2 4325-3 #### DEVANG CHU ([id number]) [facility] ([facility]) [address] [place] [address] 47200 Bilirubin.direct [Mass/Vol] 0.1 mg/dL Normal 0.0-0.3 [facility] Comment on above: Performed By: #### 2 4325-3 #### DEVANG CHU ([id number]) [facility] ([facility]) [address] [place], [place] [id number] Protein [Mass/Vol] 6.9 g/dL Normal 6.4-8.2 [facility] Comment on above: Performed By: #### 2 4325-3 #### DEVANG CHU ([id number]) [facility] ([facility]) [address] [place] [address] 99140 Lactateon 03-24-2024 Lactate [Moles/Vol] 0.8 mmol/L 0.4 - 2. 0 mmol/L [facility] Lactate [Moles/Vol] 0.8 mmol/L Normal 0.4-2.0 [facility] Comment on above: Order Comment: Venip uncture immediately after or during the administration of Metamizole may lead to falsely low results. Testing should be performed immediately prior to Metamizole dosing. Performed By: #### 2 524-7 #### DEVANG CHU ([id number]) [facility] ([facility]) [address] [place] [address] 95842 Lactate [Moles/Vol]on 2023 Interpretation and review of laboratory results Normal [facility] Venipuncture immedia tely after or during the administration of Metamizole may lead to falsely low results. Testing should be performed immediately prior to Metamizole dosing. [facility] Lipaseon 03-24-2024 Lipase [Catalytic activity/Vol] 13 U/L U/L [facility] Lipase [Catalytic activity/V ol]on 03-24-2024 Venipuncture immedia tely after or during the administration of Metamizole may lead to falsely low results. Testing should be performed immediately prior to Metamizole dosing. [facility] Magnesiumon 03-24-2024 Magnesium [Mass/Vol] 1.84 mg/dL 1.60 - 2.40 mg/dL [facility] Magnesium [Mass/Vol] 1.84 mg/dL Normal 1.60-2.40 [facility] Comment on above: Performed By: #### 1 9123-9 #### DEVANG CHU ([id number]) [facility] ([facility]) [address] [place] [address] No Panel Informationon 03-24 Interpretation and review of laboratory results Normal [facility] Interpretation and review of laboratory results Normal [facility] Triacylglycerol lipaseon Lipase [Catalytic activity/Vol] 13 U/L Normal [facility] Comment on above: Order Comment: Venip uncture immediately after or during the administration of Metamizole may lead to falsely low results. Testing should be performed immediately prior to Metamizole dosing. Performed By: #### 3 040-3 #### DEVANG CHU ([id number]) [facility] ([facility]) [address] [place] [address] Urinalysis complete W Reflex Culture panel (U)on 03-24-2024 Appearance (U) Clear Clear [facility] Bilirubin (U) [Mass/Vol] Negative NEGATIVE [facility] Color (U) Yellow Light-Yellow , Yellow, Dark-Yellow [facility] Glucose Auto test strip (U) [Mass/Vol] Normal Normal mg/dL [facility] Interpretation and review of laboratory results Abnormal [facility] Ketones (U) [Mass/Vol] Negative NEGATIVE mg/dL [facility] Leukocyte esterase Auto test strip Ql (U) Negative NEGATIVE [facility] Mucus Auto (Urine sed) [#/Area] 2+ Reference range not established. /LPF [facility] Nitrite Auto test strip Ql (U) Negative NEGATIVE [facility] pH (U) 5.5 [pH] 5.0, 5.5, 6.0, 6.5, 7.0, 7.5, 8.0 [facility] Protein (U) [Mass/Vol] 20 (TRACE) NEGATIVE, 10 (TRACE), 20 (TRACE) mg/dL [facility] RBC (U) [#/Vol] 0.2 (2+) Abnormal NEGATIVE [facility] RBC Auto (Urine sed) [#/Area] 6-10 Abnormal NONE, 1-2, 3-5 /HPF [facility] Specific gravity (U) [Rel density] 1.034 1.005 - 1.035 [facility] Urobilinogen (U) [Mass/Vol] Normal Normal mg/dL [facility] WBC Auto (Urine sed) [#/Area] 1-5 1-5, NONE /HPF [facility] Appearance (U) Clear Normal Clear [facility] Comment on above: Performed By: #### 5 8077-9 #### DEVANG CHU ([id number]) [facility] ([facility]) [address] [place] [address] Bilirubin (U) [Mass/Vol] Negative Normal NEGATIVE [facility] Comment on above: Performed By: #### 5 8077-9 #### DEVANG CHU ([id number]) [facility] ([facility]) [address] [place] [address] Color (U) Yellow Normal Light-Yellow , Yellow, Dark-Yellow [facility] Comment on above: Performed By: #### 5 8077-9 #### DEVANG CHU ([id number]) [facility] ([facility]) [address] [place] [address] 48966 Glucose Auto test strip (U) [Mass/Vol] Normal Normal Normal [facility] Comment on above: Performed By: #### 5 8077-9 #### DEVANG CHU ([id number]) [facility] ([facility]) [address] [place] [address] Ketones (U) [Mass/Vol] Negative Normal NEGATIVE [facility] Comment on above: Performed By: #### 5 8077-9 #### DEVANG CHU ([id number]) [facility] ([facility]) [address] [place], [place] [id number] Leukocyte esterase Auto test strip Ql (U) Negative Normal NEGATIVE [facility] Comment on above: Performed By: #### 5 8077-9 #### DEVANG CHU ([id number]) [facility] ([facility]) [address] [place] [address] Mucus Auto (Urine sed) [#/Area] 2+ /LPF Normal Reference range not established. [facility] Comment on above: Performed By: #### 5 8077-9 #### DEVANG CHU ([id number]) [facility] ([facility]) [address] [place] [address] Nitrite Auto test strip Ql (U) Negative Normal NEGATIVE [facility] Comment on above: Performed By: #### 5 8077-9 #### DEVANG CHU ([id number]) [facility] ([facility]) [address] [place] [address] 36859 pH (U) 5.5 [pH] Normal 5.0, 5.5, 6.0, 6.5, 7.0, 7.5, 8.0 [facility] Comment on above: Performed By: #### 5 8077-9 #### DEVANG CHU ([id number]) [facility] ([facility]) [address] [place] [address]2483 Protein (U) [Mass/Vol] 20 (TRACE) Normal NEGATIVE, 10 (TRACE), 20 (TRACE) [facility] Comment on above: Performed By: #### 5 8077-9 #### DEVANG CHU ([id number]) [facility] ([facility]) [address] [place] [address] RBC (U) [#/Vol] 0.2 (2+) Abnormal NEGATIVE [facility] Comment on above: Performed By: #### 5 8077-9 #### DEVANG CHU ([id number]) [facility] ([facility]) [address] [place] [address] 36490 RBC Auto (Urine sed) [#/Area] 6-10 Abnormal NONE, 1-2, 3-5 [facility] Comment on above: Performed By: #### 5 8077-9 #### DEVANG CHU ([id number]) [facility] ([facility]) [address] [place] [address] 35554 Specific gravity (U) [Rel density] 1.034 Normal 1.005-1.035 [facility] Comment on above: Performed By: #### 5 8077-9 #### DEVANG CHU ([id number]) [facility] ([facility]) [address] [place] [address] 69531 Urobilinogen (U) [Mass/Vol] Normal Normal Normal [facility] Comment on above: Performed By: #### 5 8077-9 #### DEVANG CHU ([id number]) [facility] ([facility]) [address] [place] [address]508 WBC Auto (Urine sed) [#/Area] 1-5 Normal 1-5, NONE [facility] Comment on above: Performed By: #### 5 8077-9 #### DEVANG CHU ([id number]) [facility] ([facility]) [address] [place] [address] 75873 CBC + DIFFon 08-30-2023 BANDS 1 % Normal 0 - 5 [facility] Comment on above: Performed By: #### 2 59147 #### [place] [address] Baso # 0.03 x10EE3/UL Normal 0.00 - 0.10 [facility] Comment on above: Performed By: #### 2 35781 #### [facility],[address],[place] [address] Basophils/100 WBC (Bld) 0.5 % Normal 0.0 - 2.0 [facility] Comment on above: Performed By: #### 2 47793 #### [facility],[address] [place] [address] Basophils/100 WBC (Bld) 1.0 % Normal 0.0 - 2.0 [facility] Comment on above: Performed By: #### 2 09472 #### [facility],[address] [place] [address] CBC + DIFF Normal [facility] Comment on above: Result Comment: CBC- COMPLETE BLOOD COUNT Performed By: #### 2 56015 #### [facility],[address] [place] [address] EO 2.0 % Normal 0.0 - 4.0 [facility] Comment on above: Performed By: #### 2 48580 #### [facility],[address] [place] [address] EO # 0.25 x10EE3/UL Normal 0.00 - 0.50 [facility] Comment on above: Performed By: #### 2 77031 #### [facility],[address] [place] [address] Eosinophils/100 WBC (Bld) 3.4 % Normal 0.0 - 7.0 [facility] Comment on above: Performed By: #### 2 25193 #### [facility],[address] [place], [place] [address] Erythrocyte distribution width (RBC) [Ratio] 13.3 % Normal 12.0 - 15.6 [facility] Comment on above: Performed By: #### 2 61024 #### [facility],[address] [place] [address] Hematocrit (Bld) [Volume fraction] 53.0 % High 40.0 - 52.0 [facility] Comment on above: Performed By: #### 2 55362 #### [facility],[address] [place] [address] Hemoglobin (Bld) [Mass/Vol] 18.1 g/dL High 13.0 - 17.5 [facility] Comment on above: Performed By: #### 2 84374 #### [facility],[address] [place], [place] [id number] Lymph # 2.11 x10EE3/UL Normal 0.80 - 2.80 [facility] Comment on above: Performed By: #### 2 91777 #### [facility],[address] [place], [place] [address] Lymphocytes/100 WBC (Bld) 28.5 % Normal 20.0 - 45.0 [facility] Comment on above: Performed By: #### 2 99329 #### [facility],[address] [place], [place] [address] Lymphocytes/100 WBC (Bld) 28 % Normal 20 - 40 [facility] Comment on above: Performed By: #### 2 57452 #### [facility],[address] [place] [address] MANUAL DIFF SEE BELOW Normal [facility] Comment on above: Performed By: #### 2 67658 #### [facility],[address] [place], [place] [phone] MCH (RBC) [Entitic mass] 29 pg Normal 27 - 33 [facility] Comment on above: Performed By: #### 2 62222 #### [facility],[address] [place] [address] MCHC 34 X10 3 Normal 32 - 36 [facility] Comment on above: Performed By: #### 2 63760 #### [facility],[address] [place] [address] 67509 MCV (RBC) [Entitic vol] 86 fL Normal 81 - 98 [facility] Comment on above: Performed By: #### 2 46517 #### [facility],[address] [place], [place] [address] [place] # 0.52 x10EE3/UL Normal 0.20 - 1.00 [facility] Comment on above: Performed By: #### 2 58210 #### [facility],[address] [place] [address] MONOS 6 % Normal 0 - 8 [facility] Comment on above: Performed By: #### 2 37390 #### [facility],[address] [place] [address] MONOS % 7.0 % Normal 0.0 - 10.0 [facility] Comment on above: Performed By: #### 2 47841 #### [facility],[address] [place] [address] Morphology Edwardo (Bld) [Interp] REVIEWED Normal [facility] Comment on above: Performed By: #### 2 03500 #### [facility],[address] [place] [address] Neut # 4.48 x10EE3/UL Normal 1.50 - 7.10 [facility] Comment on above: Performed By: #### 2 67899 #### [place] [address] Neutrophils/100 WBC (Bld) 60.6 % Normal 46.0 - 76.0 [facility] Comment on above: Performed By: #### 2 49552 #### [facility],[address] [place] [address] PLATELET 222 x10EE3/UL Normal 150 - 450 [facility] Comment on above: Performed By: #### 2 82078 #### [place] [address] Platelet mean volume (Bld) [Entitic vol] 7.4 fL Normal 6.4 - 10.5 [facility] Comment on above: Result Comment: AUTO MATED DIFFERENTIAL Performed By: #### 2 60802 #### [facility],[address] [place] [address] RBC 6.14 x 10EE6/UL High 4.50 - 6.00 [facility] Comment on above: Performed By: #### 2 95501 #### [facility],[address] [place] [address] 99860 SEGS 62 % Normal 50 - 70 [facility] Comment on above: Performed By: #### 2 24193 #### [facility],[address] [place] [address] 58204 WBC 7.4 x 10EE3/UL Normal 4.5 - 10.8 [facility] Comment on above: Performed By: #### 2 58117 #### [facility],[address] [place], [place] [id number] CMP with eGFRon 08-30-2023 AGE 48 years Normal [facility] Comment on above: Performed By: #### 2 81502 #### [facility],[address] [place] [address] 72282 Albumin [Mass/Vol] 3.8 g/dL Normal 3.4 - 5.0 [facility] Comment on above: Performed By: #### 2 59548 #### [facility],[address] [place] [address] 67761 Albumin/Globulin [Mass ratio] 1.2 {ratio} Normal 0.9 - 1.6 [facility] Comment on above: Performed By: #### 2 80553 #### [facility],[address] [place] [address]139 ALK PHOS 83 U/L Normal 46 - 116 [facility] Comment on above: Performed By: #### 2 44695 #### [facility],[address] [place] [address] 35870 ALT [Catalytic activity/Vol] 36 U/L Normal 16 - 63 [facility] Comment on above: Performed By: #### 2 57135 #### [facility],[address] [place] [address] 08533 Anion gap [Moles/Vol] 8 mmol/L Low 10 - 20 [facility] Comment on above: Performed By: #### 2 87313 #### [facility],[address] [place] [address] 93282 AST [Catalytic activity/Vol] 25 U/L Normal 15 - 37 [facility] Comment on above: Performed By: #### 2 27873 #### [facility],[address] [place], [place] [id number] B/C RATIO 10 ratio Normal 0 - 30 [facility] Comment on above: Performed By: #### 2 49387 #### [facility],[address] [place], [place] [address] Bilirubin [Mass/Vol] 0.5 mg/dL Normal 0.2 - 1.0 [facility] Comment on above: Performed By: #### 2 46462 #### [facility],[address] [place], [place] [address] Calcium [Mass/Vol] 9.1 mg/dL Normal 8.5 - 10.1 [facility] Comment on above: Performed By: #### 2 53919 #### [facility],[address] [place], [place] [phone] Chloride [Moles/Vol] 107 mmol/L Normal 98 - 107 [facility] Comment on above: Performed By: #### 2 73963 #### [facility],[address] [place] [address] 56360 CMP with eGFR Normal [facility] Comment on above: Result Comment: COMP REHENSIVE METABOLIC PANEL Performed By: #### 2 27897 #### [facility],[address] [place] [address] 17062 CO2 [Moles/Vol] 35.1 mmol/L High 21.0 - 32.0 [facility] Comment on above: Performed By: #### 2 96903 #### [facility],[address] [place] [address] 80690 Creatinine [Mass/Vol] 1.15 mg/dL Normal 0.70 - 1.30 [facility] Comment on above: Performed By: #### 2 42158 #### [facility],[address] [place] [address] 55956 eGFR 68 ML/MINUTE Normal 60 - 999 [facility] Comment on above: Performed By: #### 2 32627 #### [facility],[address] [place] [address] 90881 eGFR(AA) 82 ML/MINUTE Normal 60 - 999 [facility] Comment on above: Result Comment: ACCO RDING TO THE NATIONAL KIDNEY DISEASE EDUCATION PROGRAM(NKDE), A NORMAL eGFR IS A VALUE GREATER THAN OR EQUAL TO 60 ML/MIN/1.73 SQ METERS. CHRONIC KIDNEY DISEASE: <60mL/MIN/1.73 SQ METERS KIDNEY FAILURE: <15mL/MIN/1.73 SQ METERS THIS TEST SHOULD ONLY BE USED FOR PATIENTS 18 YEARS OF AGE AND OLDER. Performed By: #### 2 95903 #### [facility],[address] [place] [address] 66616 Globulin (S) [Mass/Vol] 3.1 g/dL Normal 1.5 - 3.8 [facility] Comment on above: Performed By: #### 2 58868 #### [facility],[address] [place] [address] 54900 Glucose [Mass/Vol] 97 mg/dL Normal 74 - 106 [facility] Comment on above: Performed By: #### 2 58060 #### [facility],[address] [place] [address] 45450 Potassium [Moles/Vol] 4.3 mmol/L Normal 3.5 - 5.1 [facility] Comment on above: Performed By: #### 2 80825 #### [facility],[address] [place] [address] 22384 Protein [Mass/Vol] 6.9 g/dL Normal 6.4 - 8.2 [facility] Comment on above: Performed By: #### 2 18930 #### [facility],[address] [place] [address] 49751 Sodium [Moles/Vol] 146 mmol/L High 136 - 145 [facility] Comment on above: Performed By: #### 2 09535 #### [facility],[address] [place] [address] 76246 Urea nitrogen [Mass/Vol] 12 mg/dL Normal 7 - 18 [facility] Comment on above: Performed By: #### 2 00034 #### [facility],[address] [place] [address] 34865 LIPID PROFILEon 08-30-2023 Cholesterol [Mass/Vol] 152 mg/dL Normal 0 - 240 [facility] Comment on above: Performed By: #### 2 15023 #### [facility],[address] [place] [address] 40895 Cholesterol in HDL [Mass/Vol] 39 mg/dL Low 40 - 60 [facility] Comment on above: Performed By: #### 2 00968 #### [facility],[address] [place] [address] 49771 Cholesterol in LDL [Mass/Vol] 89 mg/dL Normal 0 - 129 [facility] Comment on above: Performed By: #### 2 04910 #### [facility],[address] [place] [address] 04743 Cholesterol.total/C holesterol in HDL [Mass ratio] 3.9 {ratio} Normal 0.0 - 5.0 [facility] Comment on above: Performed By: #### 2 52284 #### [facility],[address] [place] [address] 80929 Lipid 1996 panel Normal [facility] Comment on above: Result Comment: LIPI D PROFILE Performed By: #### 2 07865 #### [facility],[address] [place] [address] 69909 Triglyceride [Mass/Vol] 122 mg/dL Normal 0 - 150 [facility] Comment on above: Performed By: #### 2 75343 #### [facility],[address] [place] [address],[facility] [address] Clinical Event Note-+Covid19 on 04-14-2021 Clinical Event Note-+Covid19 Clinical Event: Clinical Event Note: Topic+Covid19 Details Post Discharge Follow Up: 04/14/21 at 1206 Attempted to contact patient at [phone] for a Covid19 well check. Per Provider Note, patient was made aware of results before discharge. Unable to reach pt- VM left. Velvet Parmar RN Electronic Signatures: Velvet Parmar (REYNA) (Signed 14-Apr-2021 12:07) Authored: Clinical Event Note Last Updated: 14-Apr-2021 12:07 by Velvet Parmar (REYNA) Normal [facility] CORONAVIRUS 2019 BY PCRon SARS-CoV-2 (COVID-19) RNA RAJANI+probe Ql (Unsp spec) Detected Abnormal Not Detected [facility] Comment on above: Result Comment: . This test has received [facility] Emergency Use Authorization (EUA) and has been verified by [facility]. This test is only authorized for the duration of time that circumstances exist to justify the authorization of the emergency use of in vitro diagnostic tests for the detection of SARS-CoV-2 virus and/or diagnosis of COVID-19 infection under section 564(b)(1) of the Act, 21 U.S.C. 360bbb-3(b)(1), unless the authorization is terminated or revoked sooner. [facility] is certified under CLIA-88 as qualified to perform high complexity testing. Testing is performed in the [facility] laboratory located at [address] [place] [address]. SARS-CoV-2/Flu/RSV Multiplex Test: Fact sheet for providers: https://www.fda.gov/media/088067/download Fact sheet for patients: https://www.fda.gov/media/613211/download Performed By: #### C OV19 #### [address] [address] DATE OF SYMPTOM ONSET [YYYYMMDD]? [id number] Normal [facility] Comment on above: Performed By: #### C OV19 #### [address] [address] Lab Specimen Source Nasal, Nasopharyngeal Normal [facility] Comment on above: Performed By: #### C OV19 #### [address] [address] Covid 19 Resultson 1 SARS-CoV-2 (COVID-19) RNA RAJANI+probe Ql (Unsp spec) POSITIVE COVID-19 Test Coronaviruses are common world-wide and are the cause of many common colds. SARS-COV2 is a new coronavirus that began circulating worldwide in 2019 so we are calling it COVID-19. It has been estimated that four out of five patients with COVID-19 will recover at home without the need for medical attention. Symptoms of COVID-19 may include cough, fever, shortness of breath, loss of taste or smell and other flu-like symptoms including chills, sore muscles, sore throat, and headache. Severe illness is more common in older people and people with other health problems such as high blood pressure, obesity, and immune system problems. If the test is positive, you have COVID-19. You will be contacted by the ordering physicians office and instructed to remain on home isolation, in accordance with CDC guidelines. You may also be contacted by the [facility] to see if any of your close contacts may have been exposed to the virus and need to quarantine. If the test is negative, you likely do not have COVID-19 at this time, but you still may have a different illness that can spread to other people (like Influenza, or the Flu) and could still be at risk for getting COVID-19. We recommend that you stay away from other people to limit the spread of illness until your symptoms are improving and you are fever-free for 24 hours without the use of fever lowering medications such as acetaminophen or ibuprofen. No test is 100% accurate so if you are still concerned you may have COVID-19, talk to your doctor about the need to continue to stay away from others. Medicines Unless your provider told you not to use the following: Acetaminophen (Tylenol and others) is generally safe. Anti-inflammatory medications, such as Ibuprofen (Advil or Motrin) or Naproxen (Aleve) can also be used. Idss-iok-gtloylx cough and cold medicines can be used according to the instructions on the package. Some wqae-zek-lqhjmji medicines also contain acetaminophen. Make sure you are not taking more than your recommended dose. For those not hospitalized, there is no specific treatment available for this illness. Antibiotics do not treat Coronaviruses. Follow-Up Follow up with your doctor by scheduling a virtual visit or consider follow-up at one of our urgent care fever clinics. If you are having difficulty breathing, or are very weak and having difficulty standing, this is a medical emergency. Call 911 or have someone take you to the nearest emergency room immediately. If possible, wear a facemask. Additional guidance from the CDC for patients who tested POSITIVE for COVID-19 How to isolate: Isolate yourself in a specific room at home and limit your contact with others. Use a separate bathroom from other members of the household, when possible. Leave home only to get essential medical care. Do not go to work, school or public areas. Avoid using public transportation, ride-sharing, or taxis. Restrict contact with pets and other animals. If you must care for your pet or be around animals while you are sick, wash your hands before and after your interaction and wear a facemask. Make sure that shared spaces in the home have good airflow, such as by an air conditioner or an opened window, weather permitting. Personal Hygiene Procedures: Wear a face mask when in the same room as other people or pets. If a face mask interferes with your breathing, others should wear a mask when sharing space with you. Frequent hand-washing: wash your hands with soap and water for at least 20 seconds. If soap and water are not available, use alcohol-based hand investigator vice. Avoid touching your eyes, nose, and mouth with unwashed hands. Household Hygiene Procedures: Avoid sharing personal household items such as dishes, glassware, cups, eating utensils, towels or bedding with other people or pets in your home. After use, these items should be washed with soap and hot water. Disinfect all high-touch surfaces every day with antibacterial cleaning solutions such as Lysol wipes, bleach, cleansers, etc. High-touch surfaces include tabletops, doorknobs, bathroom fixtures, toilets, phones, keyboards, tablets and bedside tables. Immediately clean any surfaces that may have blood, poop or body fluids on them, using antibacterial cleaning solutions such as Lysol wipes, bleach, cleansers, etc. If clothing or bedding come into contact with blood, poop or body fluids, they should be washed immediately. Follow the directions on the laundry detergent and clothing labels but hot water is recommended when possible. Stopping home isolation precautions: If possible, consult your doctor before stopping home isolation precautions. According to the CDC, you can discontinue home isolation precautions when you have met both of these criteria: Your fever and respiratory symptoms have been gone for 24 ashley (more content not included)... Normal [facility] Provider Note - ED v2on 10-2 Provider Note - ED v2 Provider Note - ED v2: Chart Review: ED NOTES ED NOTES: Source of Information: Patient. EMR was reviewed for previous records. -- --------- HPI: Flulike symptoms. This 46-year-old white male presents to the ED secondary to flulike symptoms that began yesterday with associated headache, fatigue, dyspnea, cough, congestion and body aches no history of fevers at home. He states that he received his 1st vaccination last he states he was at [employer]. He denies any known exposure to COVID 19 that he knows of. Patient states that nothing makes his symptoms better or worse. -- --------- PMH: Denies PSH: Right knee Social Hx: The patient denies any use of alcohol or illicit drugs. She admits to daily use of cigarettes. Fam: MEDS: Noted in the EMR. ALLERGIES: NKDA -- --------- PHYSICAL EXAM: General: Patient alert, awake, oriented X3, appears be no obvious distress, nontoxic, cooperative Skin: Warm. Dry. Intact without rash. Eyes: PEARTLA, EOMIs intact, sclera white, conjunctiva clear HEENT: Atraumatic. Normo-cephalic. Oral nasal mucosa pink and moist. Neck: Supple without meningismus, no lymphadenopathy. CV: Regular rate and rhythm without murmurs, heaves, lifts or thrills. Respiratory: Nonlabored breathing. There are no retractions or tachypnea. Lungs are clear to auscultation bilaterally. GI: Soft, nontender, without gross distention, bowel sounds present in all 4 quadrants. There is no pulsatile masses. There is no CVA tenderness. MUSC: There is no joint swelling or bony tenderness on exam. Neuro: Cranial nerves II - XII grossly intact. Speech is fluent. No focal neurologic deficits are noted on exam. Lower extremities: There is no peripheral edema bilaterally, negative Homans sign. No palpable cords. Distal pulses are present in both lower extremities. Psych: Maintains eye contact. Cooperative. -- --------- ED course: Due to patient's symptoms he was tested for COVID 19. COVID 19 test was positive. I did have a discussion with the patient concerning his lab results and recommended that he self isolate for the next 10 days. I also recommended he talk to a physician before getting his second COVID 19 vaccine. He was discharged home in stable satisfactory condition he was encouraged to return to the ED if he developed any shortness of breath. This chart was dictated with the use of ixigo software within the framework of the current electronic medical records software. Attempts were made to edit in real time, given time constraints there is the potential for inaccuracies in my dictation. Gerardo Saunders, DO HISTORY OF PRESENTING ILLNESS ANDRIY is a 46 year old Male and was seen by me at 13-Apr-2021 05:12 for a chief complaint of cough (c/o cough, congestion, sob, h/a, fatigue x 1 day. Denies COVID exposure, states history of vaccine x 1 dose)(1). Triage Information: Most recent Vital Sign Value Date Temp (F): 96.9 04-13-2021 05:18 Temp (C): 36.1 04-13-2021 05:18 Heart Rate (beats/min): 109 04-13-2021 05:18 Respirations (breaths/min): 16 04-13-2021 05:18 SpO2 (%): 95 04-13-2021 05:18 BP Systolic (mm Hg): 123 04-13-2021 05:18 BP Diastolic (mm Hg): 84 04-13-2021 05:18 PAST MEDICAL HISTORY ATTESTATION: I have reviewed and confirmed nurse's/medic's notes for patient's medications, allergies, and medical, surgical, family and social history ALLERGIES/INTOLERANCES: No Known Allergies HEALTH HISTORY: No documented data. OUTPATIENT MEDICATIONS: Home Medications Review Status for Reconciliation: N/A Med Status: N/A No documented data. SIGNIFICANT EVENTS: No documented data. REVIEW OF SYSTEMS CONSTITUTIONAL: POSITIVE for: anorexia and malaise Negative for: chills, diaphoresis, fever, weakness and weight loss EYES: Negative for: itching, lacrimation, lid swelling, pain, photophobia, redness and vision changes ENMT Ears: Negative for: discharge, itching, hearing disturbance, hearing loss, pain and tinnitus Nose: POSITIVE for: congestion Negative for: discharge, nose bleeds, obstruction and sneezing Mouth/Teeth: Negative for: gum bleeding, mouth lesions, tooth caries, tooth trauma and toothache Throat/Neck: Negative for: dysphagia, hoarseness, throat lesions, throat pain, neck lumps, neck pain, neck stiffness and swollen glands CARDIOVASCULAR: Negative for: bradycardia, chest pain, diaphor (more content not included)... Normal [facility] Triage - EDon 04-13-2021 Triage - ED Quick Triage: The patient and/or guardian verbally acknowledges placement for services into the following (when Urgent Care Service hours are operating):emergency department Chart Review: ARRIVAL INFORMATION Mode of Arrival: private vehicle CHIEF COMPLAINT ANDRIY EUCEDA is a Male patient with a chief complaint of cough (c/o cough, congestion, sob, h/a, fatigue x 1 day. Denies COVID exposure, states history of vaccine x 1 dose). Triage Date/Time: 13-Apr-2021 05:18 CLEO: 4 Vital Signs: Temperature: 96.9F ( 36.1C) Blood Pressure: 123/84 Mean: Heart Rate: 109 Respiratory Rate: 16 Pulse Oximetry: 95% Height: 5 feet 7.00 inches. 170.1 CM Weight: 240.3 pounds. Calculated 109.0 kg. Calculated BMI (kg/m2): 37.671 Calculated BSA (m2) 2.27 Cough lasting greater than 3 weeks: no Allergies: no Patient has homicidal thoughts: no Risk Screens Suicide Risk Screen In the Past Month: Have you wished you were or wished you could go to sleep and not wake up no In the Past Month: Have you had any actual thoughts of killing yourself no In Your Lifetime: Have you ever done anything, started to do anything, or prepared to do anything to end your life no Grimaldo Fall Scale Screening Has the patient fallen before (or is the patient in the ED as a result of a fall) has not had a fall Does the patient have an impaired gait does not have impaired gait Is the patient cognitively impaired not cognitively impaired Interventions: Grimaldo Fall Interventions: LOW INTERVENTIONS: *patient oriented to surroundings and call system, * patient/family falls education completed and documented, *patients fall status communicated during bedside handoff, *whiteboard updated, *mode of toileting discussed with patient, *bed in low position with brakes locked, *call light in reach, * non-skid footwear TRAVEL HISTORY Travel History Coronavirus Screening: positive for symptoms Travel Exposure History: NO travel to International locations in the past 30 days PAIN Pain Scale Used: BRIELLE Past Medical History: Past Medical History Reviewedyes Electronic Signatures: Devin Alfredo (REYNA) (Signed 13-Apr-2021 05:21) Authored: Quick Triage, Risk Screens, Pain, Travel History, Chart Review, Scores, Past Medical History Last Updated: 13-Apr-2021 05:21 by Devin Alfredo (REYNA) [facility] Vital Signs Date Time Vital Sign Value Performing Clinician Facility 10-28-2024 20:27-0400 Diastolic blood pressure 80 mm[Hg] Jasmin GEE Work Phone: [facility] 10-28-2024 20:27-0400 Heart rate 75 /min Jasmin GEE Work Phone: [facility] 10-28-2024 20:27-0400 Respiratory rate 18 /min Jasmin GEE Work Phone: [facility] 10-28-2024 20:27-0400 SaO2% (BldA) [Mass fraction] 95 % Jasmin Casey APRN-PILOT CONTROL OPERATOR Work Phone: [facility] 10-28-2024 20:27-0400 Systolic blood pressure 117 mm[Hg] Jasmin Casey SUPERVISOR DETASSELING CREW-PILOT CONTROL OPERATOR Work Phone: [facility] 10-28-2024 19:12-0400 Body height 172.7 cm Jasmin Casey SUPERVISOR DETASSELING CREW-PILOT CONTROL OPERATOR Work Phone: [facility] 10-28-2024 19:12-0400 Body mass index (BMI) [Ratio] 30.41 kg/m2 Jasmin Casey SUPERVISOR DETASSELING CREW-PILOT CONTROL OPERATOR Work Phone: [facility] 10-28-2024 19:12-0400 Body temperature 97.9 [degF] Jasmin Casey SUPERVISOR DETASSELING CREW-PILOT CONTROL OPERATOR Work Phone: [facility] 10-28-2024 19:12-0400 Body weight 90.72 kg Jasmin Casey SUPERVISOR DETASSELING CREW-PILOT CONTROL OPERATOR Work Phone: [facility] 03-26-2024 06:14-0400 Diastolic blood pressure 94 mm[Hg] Gerardo Saunders DO Work Phone: [facility] 03-26-2024 06:14-0400 Heart rate 68 /min Gerardo Saunders DO Work Phone: [facility] 03-26-2024 06:14-0400 Respiratory rate 18 /min Gerardo Saunders DO Work Phone: [facility] 03-26-2024 06:14-0400 SaO2% (BldA) [Mass fraction] 96 % Gerardo Saunders DO Work Phone: [facility] 03-26-2024 06:14-0400 Systolic blood pressure 134 mm[Hg] Gerardo Saunders DO Work Phone: [facility] 03-26-2024 03:22-0400 Body temperature 97.39 [degF] Gerardo Saunders DO Work Phone: [facility] 03-24-2024 15:24-0400 Diastolic blood pressure 74 mm[Hg] Berto Diana MD Work Phone: [facility] 03-24-2024 15:24-0400 Heart rate 89 /min Berto Diana MD Work Phone: [facility] 03-24-2024 15:24-0400 Respiratory rate 18 /min Berto Diana MD Work Phone: [facility] 03-24-2024 15:24-0400 SaO2% (BldA) [Mass fraction] 95 % Berto Diana MD Work Phone: [facility] 03-24-2024 15:24-0400 Systolic blood pressure 126 mm[Hg] Berto Diana MD Work Phone: [facility] 03-24-2024 12:11-0400 Body height 167.6 cm Berto Diana MD Work Phone: [facility] 03-24-2024 12:11-0400 Body mass index (BMI) [Ratio] 29.05 kg/m2 Berto Diana MD Work Phone: [facility] 03-24-2024 12:11-0400 Body temperature 97 [degF] Berto Diana MD Work Phone: [facility] 03-24-2024 12:11-0400 Body weight 81.65 kg Berto Diana MD Work Phone: [facility] 04-13-2021 08:44-0400 Diastolic blood pressure 78 mm[Hg] No Pcp Required [facility] 04-13-2021 08:44-0400 Heart rate 100 /min No Pcp Required [facility] 04-13-2021 08:44-0400 Respiratory rate 18 /min No Pcp Required [facility] 04-13-2021 08:44-0400 SaO2% (BldA) [Mass fraction] 96 % No Pcp Required [facility] 04-13-2021 08:44-0400 Systolic blood pressure 128 mm[Hg] No Pcp Required [facility] 04-13-2021 07:18-0400 Body height 170.1 cm No Pcp Required [facility] 04-13-2021 07:18-0400 Body temperature 96.98 [degF] No Pcp Required [facility] 04-13-2021 07:18-0400 Body weight 109 kg No Pcp Required [facility] Encounters Encounter Date Encounter Type Care Provider Facility Start: 10-28-2024 End: 10-28-2024 Emergency department patient visit JASMIN Shreyas CASEY [facility] Emergency Medicine Comment on above: Pain of right heel ( Primary Dx) Start: 04-01-2024 End: 04-01-2024 ambulatory [facility] Start: 03-26-2024 End: 03-26-2024 Emergency department patient visit Gerardo Saunders DO Work Phone: [facility] Emergency Medicine Comment on above: Enteritis (Primary D x) Start: 03-24-2024 End: 03-24-2024 Emergency department patient visit Berto Diana MD Work Phone: [facility] Emergency Medicine Comment on above: Abdominal pain, unsp ecified abdominal location (Primary Dx); Diarrhea, unspecified type; Enteritis Start: 08-30-2023 End: 08-30-2023 [facility] Start: 04-13-2021 End: 04-13-2021 Emergency department patient visit Gerardo Saunders [facility] Emergency 09 Procedures Date Procedure Procedure Detail Performing Clinician Start: 10-28-2024 Radex foot complete minimum 3 views Jennifer Ramirez SUPERVISOR DETASSELING CREW-PILOT CONTROL OPERATOR Work Phone: Start: 03-26-2024 Ct abdomen & pelvis w/contrast material Gerardo Saunders DO Work Phone: Start: 03-26-2024 Urinalysis complete W Reflex Culture panel - Urine Gerardo Saunders DO Work Phone: Start: 03-26-2024 Urnls dip stick/tabl et reagent auto microscopy Gerardo Saunders DO Work Phone: Start: 03-26-2024 Comprehensive metabo lic panel Gerardo Saunders DO Work Phone: Start: 03-24-2024 Ct abdomen & pelvis w/contrast material Berto Diana MD Work Phone: Start: 03-24-2024 Inf agent det nuclei c acid clostridium amp probe Berto Diana MD Work Phone: Start: 03-24-2024 Urinalysis complete W Reflex Culture panel - Urine Berto Diana MD Work Phone: Start: 03-24-2024 Urnls dip stick/tabl et reagent auto microscopy Berto Diana MD Work Phone: Start: 03-24-2024 Comprehensive metabo lic panel Berto Diana MD Work Phone: Plan of Treatment Date Care Activity Detail Author Start: 02-23-2025 Influenza vaccination Influenz a Vaccine (Season Ended) [facility] Start: 2024 Zoster Vaccines (1 o f 2) Zoster Vaccines (1 of 2) [facility] Start: 02-24-2024 COVID-19 Vaccine ( season) COVID-19 Vaccine ( season) [facility] Start: 02-24-2024 COVID-19 Vaccine ( season) COVID-19 Vaccine ( season) [facility] Start: 02-24-2024 Influenza vaccination Influenza Vacc ine (#1) [facility] Start: 1996 DTaP/Tdap/Td Vaccine s (1 - Tdap) DTaP/Tdap/Td Vaccines (1 - Tdap) [facility] Start: 1993 Hepatitis A Vaccines (1 of 2 - Risk 2-dose series) Hepatitis A Vaccines (1 of 2 - Risk 2-dose series) [facility] Start: 1993 Hepatitis B Vaccines (1 of 3 - 19+ 3-dose series) Hepatitis B Vaccines (1 of 3 - 19+ 3-dose series) [facility] Start: 1993 Pneumococcal vaccination Pneumococcal Vaccine (1 of 2 - PCV) [facility] Start: 1992 Diabetes mellitus screening Diabetes Screening [facility] Start: 1992 Hepatitis C screening Hepatitis C Sc reening [facility] Start: 1980 Pneumococcal Vaccine : Pediatrics (0 to 5 Years) and At-Risk Patients (6 to 64 Years) (1 of 2 - PCV) Pneumococcal Vaccine: Pediatrics (0 to 5 Years) and At-Risk Patients (6 to 64 Years) (1 of 2 - PCV) [facility] Start: 1975 MMR Vaccines (1 of 1 - Standard series) MMR Vaccines (1 of 1 - Standard series) [facility] Start: 1974 HIV screening HIV Screening [facility] Start: 1974 Lipid panel Lipid Panel [facility] Start: 1974 Screening for malign ant neoplasm of colon [facility] Start: 1974 Yearly Adult Physical Yearly Adult P hysical [facility] End: 03-26-2024 Extra Urine Reina Tube [facility] Work Phone: Comment on above: Once for 1 Occurrenc es starting 03/26/2024 until 03/26/2024 End: 03-24-2024 Extra Urine Reina Tube [facility] Work Phone: Comment on above: Once for 1 Occurrenc es starting 03/24/2024 until 03/24/2024 End: 03-24-2024 Hemoglobin.gastrointest inal [Presence] in Stool --1st specimen [facility] Work Phone: Comment on above: STAT (Lab) for 1 Occ urrences starting 03/24/2024 until 03/24/2024 End: 03-26-2024 Urinalysis complete W Reflex Culture panel - Urine [facility] Work Phone: Comment on above: STAT (Lab) for 1 Occ urrences starting 03/26/2024 until 03/26/2024 End: 03-24-2024 Urinalysis complete W Reflex Culture panel - Urine [facility] Work Phone: Comment on above: Once (Lab) for 1 Occ urrences starting 03/24/2024 until 03/24/2024 Payers Date Payer Category Payer Managed Care (Private) [employer] [facility] [id number] 2024 Private Health Insurance [id number] 2024 Unknown 2024 Unknown [id number] 1974 Unknown [id number] 1974 Unknown [id number] 1974 Unknown [id number] 1974 Unknown [id number] 1974 Unknown [id number] 1974 Unknown [id number] Private Health Insurance Social History Date Type Detail Facility [facility] Tobacco smoking consumption unknown [facility] Start: 03-24-2024 Tobacco smoking status NHIS Smokes tobacco daily [facility] Work Phone: History of tobacco use Cigarette Smoker [facility] Work Phone: Start: 03-24-2024 Tobacco use and exposure Smokeless tobacco non-user [facility] Work Phone: Start: 03-26-2024 End: 10-28-2024 Alcoholic beverage intake Ex-drinker (finding) [facility] Work Phone: Start: 03-24-2024 End: 10-28-2024 History of Social function [facility] Work Phone: Start: 03-24-2024 End: 10-28-2024 Tobacco use panel [facility] Work Phone: Start: 1975 Sex assigned at Male [facility] Start: 03-24-2024 Gender identity Identifies as male gender (finding) [facility] Work Phone: Start: 03-24-2024 Sexual orientation Heterosexual (finding) [facility] Work Phone: Start: 03-14-2024 End: 10-28-2024 Exposure to SARS-CoV-2 (event) Not sure [facility] Work Phone: Functional Status Date Assessment Result Facility 10-28-2024 [facility] s everity rating scale screener - recent [C-SSRS] [facility] Work Phone: Clinical Notes 03-24-2024 to 10-28-2024 MARLEN Stone - 10/28/2024 7:25 PM MARLEN Mckeon - 10/28/2024 7:25 PM Kat Saunders, - 03/26/2024 3:15 AM EDTDischarge InstructionsAttachments Note Date & Type Note Facility 10-28-2024 Physician Emergency department Note Chief Complaint Patient presents with Ankle Pain Right ankle pain for the past few weeks, worse the past couple days. Denies injury Patient History Medical History[1] Surgical History[2] Family History[3] Social History Social History Narrative Not on file RX Allergies[4] PMH: Reviewed PSH: Reviewed Social History: Reviewed. Allergies reviewed. HPI: Andriy Euceda is a 49 y.o. male who presents to the ED today accompanied by family with complaints of right foot/ankle pain. Intermittently for the last several weeks. No injury or trauma. Getting worse for the last couple days. Not taking anything for pain at home. PHYSICAL EXAM: GENERAL: Vitals noted, no distress. Alert and oriented x 3. Non-toxic. HEAD: Normocephalic, atraumatic. Pupils equally round and reactive to light. EOMI. NECK: Supple. No midline or paraspinal tenderness through full range of motion. CARDIAC: Regular rate, rhythm. No murmurs or rubs. RESPIRATORY: Lungs clear and equal bilaterally. No respiratory distress. MUSCULOSKELETAL & SKIN: Right foot/ankle - skin is warm, dry, and intact with tenderness over lateral calcaneus bilaterally. Bilateral malleoli nontender. Distal cap refill less than 2 seconds, pedal pulse 2+. No rash/lesions. No peripheral edema. NEURO: No focal neurologic deficits, acting appropriately. Labs Reviewed - No data to display XR foot right 3+ views Final Result No acute fracture. Degenerative changes as above. MACRO: None Signed by: Eusebio Iqbal 10/28/2024 7:53 PM Dictation workstation: [id number] Medical Decision Making ED COURSE: This patient was seen and examined by myself independently. Declined pain medication in the ED. Xray of the right foot shows degenerative changes, no acute fractures. Patient made aware of the findings. Not diabetic. Will have him trial steroids for inflammation, suspecting tendonitis/plantar fasciitis. Referred to PCP for followup care. He is discharged home in a stable condition with computer instructions given and is encouraged to return to the ER for any new or worsening symptoms. DIAGNOSTIC IMPRESSION: #1 right heel pain MARLEN Stone 10/28/242002 [1] Past Medical History: Diagnosis Date Hypertension [2] Past Surgical History: Procedure Laterality Date KNEE Right [3] No family history on file. [4] No Known Allergies MARLEN Stone 10/28/242003 [facility] Work Phone: 10-28-2024 Emergency department Note Chief Complaint Patient presents with Ankle Pain Right ankle pain for the past few weeks, worse the past couple days. Denies injury Patient History Medical History[1] Surgical History[2] Family History[3] Social History Social History Narrative Not on file RX Allergies[4] PMH: Reviewed PSH: Reviewed Social History: Reviewed. Allergies reviewed. HPI: Andriy Euceda is a 49 y.o. male who presents to the ED today accompanied by family with complaints of right foot/ankle pain. Intermittently for the last several weeks. No injury or trauma. Getting worse for the last couple days. Not taking anything for pain at home. PHYSICAL EXAM: GENERAL: Vitals noted, no distress. Alert and oriented x 3. Non-toxic. HEAD: Normocephalic, atraumatic. Pupils equally round and reactive to light. EOMI. NECK: Supple. No midline or paraspinal tenderness through full range of motion. CARDIAC: Regular rate, rhythm. No murmurs or rubs. RESPIRATORY: Lungs clear and equal bilaterally. No respiratory distress. MUSCULOSKELETAL & SKIN: Right foot/ankle - skin is warm, dry, and intact with tenderness over lateral calcaneus bilaterally. Bilateral malleoli nontender. Distal cap refill less than 2 seconds, pedal pulse 2+. No rash/lesions. No peripheral edema. NEURO: No focal neurologic deficits, acting appropriately. Labs Reviewed - No data to display XR foot right 3+ views Final Result No acute fracture. Degenerative changes as above. MACRO: None Signed by: Eusebio Iqbal 10/28/2024 7:53 PM Dictation workstation: [id number] Medical Decision Making ED COURSE: This patient was seen and examined by myself independently. Declined pain medication in the ED. Xray of the right foot shows degenerative changes, no acute fractures. Patient made aware of the findings. Not diabetic. Will have him trial steroids for inflammation, suspecting tendonitis/plantar fasciitis. Referred to PCP for followup care. He is discharged home in a stable condition with computer instructions given and is encouraged to return to the ER for any new or worsening symptoms. DIAGNOSTIC IMPRESSION: #1 right heel pain MARLEN Stone 10/28/242002 [1] Past Medical History: Diagnosis Date Hypertension [2] Past Surgical History: Procedure Laterality Date KNEE Right [3] No family history on file. [4] No Known Allergies MARLEN Stone 10/28/242003 documented in this encounter [facility] Work Phone: 03-26-2024 Emergency department Note Abdominal pain. This 49-year-old white male presents to the ED with complaint of abdominal pain symptoms that began on Sunday states the pain was diffuse in nature with associated nausea without vomiting. He was seen and evaluated in the ED due to worsening abdominal pain symptoms. Patient states that he had lab work and a CT scan performed and was discharged home with a prescription for Cipro and Lomotil patient states that he was diagnosed with IBS. He states that his diarrhea has improved since being treated with Lomotil. He Daphnie presents to the ED today due to diffuse abdominal pain symptoms worse in the left lower quadrant. States that nothing seems to make his symptoms better or worse. Patient mitts to smoking 1/2 pack/day cigarettes and has no previous abdominal surgical history. History provided by: Patient and relative Physical Exam Vitals and nursing note reviewed. Constitutional: General: He is awake. Appearance: Normal appearance. He is obese. Comments: Patient is unkept and smells of cat urine HENT: Head: Normocephalic and atraumatic. Right Ear: Hearing and external ear normal. Left Ear: Hearing and external ear normal. Nose: Nose normal. No congestion or rhinorrhea. Mouth/Throat: Lips: [place]. Mouth: Mucous membranes are moist. Pharynx: Oropharynx is clear. Uvula midline. No oropharyngeal exudate or posterior oropharyngeal erythema. Eyes: General: Lids are normal. Vision grossly intact. Right eye: No discharge. Left eye: No discharge. Extraocular Movements: Extraocular movements intact. Conjunctiva/sclera: Conjunctivae normal. Pupils: Pupils are equal, round, and reactive to light. Cardiovascular: Rate and Rhythm: Normal rate and regular rhythm. Pulses: Normal pulses. Heart sounds: Normal heart sounds. No murmur heard. No friction rub. No gallop. Pulmonary: Effort: Pulmonary effort is normal. No respiratory distress. Breath sounds: Normal breath sounds. No stridor. No wheezing, rhonchi or rales. Chest: Chest wall: No tenderness. Abdominal: General: Abdomen is protuberant. Bowel sounds are decreased. There is no distension. Palpations: Abdomen is soft. There is no mass. Tenderness: There is generalized abdominal tenderness. There is no guarding or rebound. Hernia: No hernia is present. Musculoskeletal: General: No swelling, tenderness, deformity or signs of injury. Normal range of motion. Cervical back: Full passive range of motion without pain, normal range of motion and neck supple. Right lower leg: No edema. Left lower leg: No edema. Skin: General: Skin is warm and dry. Capillary Refill: Capillary refill takes less than 2 seconds. Coloration: Skin is not jaundiced or pale. Findings: No bruising, erythema, lesion or rash. Neurological: General: No focal deficit present. Mental Status: He is alert and oriented to person, place, and time. GCS: GCS eye subscore is 4. GCS verbal subscore is 5. GCS motor subscore is 6. Cranial Nerves: Cranial nerves 2-12 are intact. No cranial nerve deficit. Sensory: Sensation is intact. No sensory deficit. Motor: Motor function is intact. No weakness. Coordination: Coordination is intact. Coordination normal. Gait: Gait is intact. Deep Tendon Reflexes: Reflexes normal. Psychiatric: Attention and Perception: Attention and perception normal. Mood and Affect: Mood and affect normal. Speech: Speech normal. Behavior: Behavior normal. Behavior is cooperative. Thought Content: Thought content normal. Cognition and Memory: Cognition and memory normal. Judgment: Judgment normal. Labs Reviewed COMPREHENSIVE METABOLIC PANEL - Abnormal Result Value Glucose 95 Sodium 141 Potassium 3.8 Chloride 108 (*) Bicarbonate 27 Anion Gap 10 Urea Nitrogen 17 Creatinine 1.27 eGFR 69 Calcium 8.9 Albumin 3.9 Alkaline Phosphatase 79 Total Protein 6.0 (*) AST 17 Bilirubin, Total 0.3 ALT 27 URINALYSIS WITH REFLEX CULTURE AND MICROSCOPIC - Abnormal Color, Urine Yellow Appearance, Urine Clear Specific [place], Urine 1.040 (*) pH, Urine 6.0 Protein, Urine 30 (1+) (*) Glucose, Urine Normal Blood, Urine 0.03 (TRACE) (*) Ketones, Urine NEGATIVE Bilirubin, Urine NEGATIVE Urobilinogen, Urine 4 (2+) (*) Nitrite, Urine NEGATIVE Leukocyte Esterase, Urine NEGATIVE URINALYSIS MICROSCOPIC WITH REFLEX CULTURE - Abnormal WBC, Urine 1-5 RBC, Urine 11-20 (*) Mucus, Urine 4+ LACTATE - Normal Lactate 0.9 Narrative: Venipuncture immediately after or during the administration of Metamizole may lead to falsely low results. Testing should be performed immediately prior to Metamizole dosing. LIPASE - Normal Lipase 21 Narrative: Venipuncture immediately after or during the administration of Metamizole may lead to falsely low results. Testing should be performed immediately prior to Metamizole dosing. CBC WITH AUTO DIFFERENTIAL WBC 9.0 nRBC 0.0 RBC 5.43 Hemoglobin 16.3 Hematocrit 47.4 MCV 87 MCH 30.0 MCHC 34.4 RDW 13.2 Platelets 220 Neutrophils % 61.6 Immature Granulocytes %, Automated 0.3 Lymphocytes % 28.3 Monocytes % 4.9 Eosinophils % 4.1 Basophils % 0.8 Neutrophils Absolute 5.57 Immature Granulocytes Absolute, Automated 0.03 Lymphocytes Absolute 2.56 Monocytes Absolute 0.44 Eosinophils Absolute 0.37 Basophils Absolute 0.07 URINALYSIS WITH REFLEX CULTURE AND MICROSCOPIC Narrative: The following orders were created for panel order Urinalysis with Reflex Culture and Microscopic. Procedure Abnormality Status --------- ------ Urinalysis with Reflex C...[[id number]] Abnormal Final result Extra Urine Reina Tube[[id number]] In process Please view results for these tests on the individual orders. EXTRA URINE REINA TUBE CT abdomen pelvis w IV contrast Final Result Compared to 03/24/2024, inflammatory changes of the distal small bowel loops have decreased. There is a focal loop of ileum which is fecalized upstream to a short segment of luminal narrowing. This may represent focal dysmotility versus a stricture. These findings are overall likely sequelae of recent bout of enteritis with differential diagnosis including inflammatory bowel disease. MACRO: None Signed by: Cm Julian 03/26/2024 5:26 AM Dictation workstation: [id number] Procedures Medical Decision Making Patient was seen and evaluated due to worsening abdominal pain symptoms after she was seen and evaluated in the ED 2 days ago for diarrhea nausea and vomiting and abdominal pain symptoms she was diagnosed with enteritis thought to be factious and was provided prescriptions for ciprofloxacin and Bentyl. Patient indicates that the pain is diffuse. Patient had repeat blood work urinalysis and CT scan of the abdomen pelvis he was warned the patient that he has been exposed to radiation again he stated that the symptoms are worse and wanted to get checked out. Was unremarkable urinalysis revealed a elevated specific gravity of 1.040. The CT scan of the abdomen pelvis with IV contrast revealed compared to CT imaging from 03/24/2024 and inflammatory changes of the distal small bowel loops have decreased there is a focal loop of ileum which is fecalized upstream to a short segment of the luminal narrowing. This may represent focal dysmotility versus a stricture. These findings are overall likely sequelae of recent bout of enteritis with differential diagnoses include inflammatory bowel disease. Patient was ordered a liter of normal saline wide open due to the elevated specific gravity urine. I did have a detailed discussion with the patient and family member concerning lab work and CT scan results and plan of care patient was provided prescriptions for Zofran, Bentyl and Phenergan suppositories and was referred to follow-up with Dr. Yang. The patient also wanted a work note. Lab work Diagnoses as of 03/26/24556 Enteritis Gerardo Saunders DO 03/26/24556 documented in this encounter [facility] Work Phone: 03-26-2024 Physician Emergency department Note Abdominal pain. This 49-year-old white male presents to the ED with complaint of abdominal pain symptoms that began on Sunday states the pain was diffuse in nature with associated nausea without vomiting. He was seen and evaluated in the ED due to worsening abdominal pain symptoms. Patient states that he had lab work and a CT scan performed and was discharged home with a prescription for Cipro and Lomotil patient states that he was diagnosed with IBS. He states that his diarrhea has improved since being treated with Lomotil. He Daphnie presents to the ED today due to diffuse abdominal pain symptoms worse in the left lower quadrant. States that nothing seems to make his symptoms better or worse. Patient mitts to smoking 1/2 pack/day cigarettes and has no previous abdominal surgical history. History provided by: Patient and relative Physical Exam Vitals and nursing note reviewed. Constitutional: General: He is awake. Appearance: Normal appearance. He is obese. Comments: Patient is unkept and smells of cat urine HENT: Head: Normocephalic and atraumatic. Right Ear: Hearing and external ear normal. Left Ear: Hearing and external ear normal. Nose: Nose normal. No congestion or rhinorrhea. Mouth/Throat: Lips: [place]. Mouth: Mucous membranes are moist. Pharynx: Oropharynx is clear. Uvula midline. No oropharyngeal exudate or posterior oropharyngeal erythema. Eyes: General: Lids are normal. Vision grossly intact. Right eye: No discharge. Left eye: No discharge. Extraocular Movements: Extraocular movements intact. Conjunctiva/sclera: Conjunctivae normal. Pupils: Pupils are equal, round, and reactive to light. Cardiovascular: Rate and Rhythm: Normal rate and regular rhythm. Pulses: Normal pulses. Heart sounds: Normal heart sounds. No murmur heard. No friction rub. No gallop. Pulmonary: Effort: Pulmonary effort is normal. No respiratory distress. Breath sounds: Normal breath sounds. No stridor. No wheezing, rhonchi or rales. Chest: Chest wall: No tenderness. Abdominal: General: Abdomen is protuberant. Bowel sounds are decreased. There is no distension. Palpations: Abdomen is soft. There is no mass. Tenderness: There is generalized abdominal tenderness. There is no guarding or rebound. Hernia: No hernia is present. Musculoskeletal: General: No swelling, tenderness, deformity or signs of injury. Normal range of motion. Cervical back: Full passive range of motion without pain, normal range of motion and neck supple. Right lower leg: No edema. Left lower leg: No edema. Skin: General: Skin is warm and dry. Capillary Refill: Capillary refill takes less than 2 seconds. Coloration: Skin is not jaundiced or pale. Findings: No bruising, erythema, lesion or rash. Neurological: General: No focal deficit present. Mental Status: He is alert and oriented to person, place, and time. GCS: GCS eye subscore is 4. GCS verbal subscore is 5. GCS motor subscore is 6. Cranial Nerves: Cranial nerves 2-12 are intact. No cranial nerve deficit. Sensory: Sensation is intact. No sensory deficit. Motor: Motor function is intact. No weakness. Coordination: Coordination is intact. Coordination normal. Gait: Gait is intact. Deep Tendon Reflexes: Reflexes normal. Psychiatric: Attention and Perception: Attention and perception normal. Mood and Affect: Mood and affect normal. Speech: Speech normal. Behavior: Behavior normal. Behavior is cooperative. Thought Content: Thought content normal. Cognition and Memory: Cognition and memory normal. Judgment: Judgment normal. Labs Reviewed COMPREHENSIVE METABOLIC PANEL - Abnormal Result Value Glucose 95 Sodium 141 Potassium 3.8 Chloride 108 (*) Bicarbonate 27 Anion Gap 10 Urea Nitrogen 17 Creatinine 1.27 eGFR 69 Calcium 8.9 Albumin 3.9 Alkaline Phosphatase 79 Total Protein 6.0 (*) AST 17 Bilirubin, Total 0.3 ALT 27 URINALYSIS WITH REFLEX CULTURE AND MICROSCOPIC - Abnormal Color, Urine Yellow Appearance, Urine Clear Specific [place], Urine 1.040 (*) pH, Urine 6.0 Protein, Urine 30 (1+) (*) Glucose, Urine Normal Blood, Urine 0.03 (TRACE) (*) Ketones, Urine NEGATIVE Bilirubin, Urine NEGATIVE Urobilinogen, Urine 4 (2+) (*) Nitrite, Urine NEGATIVE Leukocyte Esterase, Urine NEGATIVE URINALYSIS MICROSCOPIC WITH REFLEX CULTURE - Abnormal WBC, Urine 1-5 RBC, Urine 11-20 (*) Mucus, Urine 4+ LACTATE - Normal Lactate 0.9 Narrative: Venipuncture immediately after or during the administration of Metamizole may lead to falsely low results. Testing should be performed immediately prior to Metamizole dosing. LIPASE - Normal Lipase 21 Narrative: Venipuncture immediately after or during the administration of Metamizole may lead to falsely low results. Testing should be performed immediately prior to Metamizole dosing. CBC WITH AUTO DIFFERENTIAL WBC 9.0 nRBC 0.0 RBC 5.43 Hemoglobin 16.3 Hematocrit 47.4 MCV 87 MCH 30.0 MCHC 34.4 RDW 13.2 Platelets 220 Neutrophils % 61.6 Immature Granulocytes %, Automated 0.3 Lymphocytes % 28.3 Monocytes % 4.9 Eosinophils % 4.1 Basophils % 0.8 Neutrophils Absolute 5.57 Immature Granulocytes Absolute, Automated 0.03 Lymphocytes Absolute 2.56 Monocytes Absolute 0.44 Eosinophils Absolute 0.37 Basophils Absolute 0.07 URINALYSIS WITH REFLEX CULTURE AND MICROSCOPIC Narrative: The following orders were created for panel order Urinalysis with Reflex Culture and Microscopic. Procedure Abnormality Status --------- ------ Urinalysis with Reflex C...[[id number]] Abnormal Final result Extra Urine Reina Tube[[id number]] In process Please view results for these tests on the individual orders. EXTRA URINE REINA TUBE CT abdomen pelvis w IV contrast Final Result Compared to 03/24/2024, inflammatory changes of the distal small bowel loops have decreased. There is a focal loop of ileum which is fecalized upstream to a short segment of luminal narrowing. This may represent focal dysmotility versus a stricture. These findings are overall likely sequelae of recent bout of enteritis with differential diagnosis including inflammatory bowel disease. MACRO: None Signed by: Cm Julian 03/26/2024 5:26 AM Dictation workstation: [id number] Procedures Medical Decision Making Patient was seen and evaluated due to worsening abdominal pain symptoms after she was seen and evaluated in the ED 2 days ago for diarrhea nausea and vomiting and abdominal pain symptoms she was diagnosed with enteritis thought to be factious and was provided prescriptions for ciprofloxacin and Bentyl. Patient indicates that the pain is diffuse. Patient had repeat blood work urinalysis and CT scan of the abdomen pelvis he was warned the patient that he has been exposed to radiation again he stated that the symptoms are worse and wanted to get checked out. Was unremarkable urinalysis revealed a elevated specific gravity of 1.040. The CT scan of the abdomen pelvis with IV contrast revealed compared to CT imaging from 03/24/2024 and inflammatory changes of the distal small bowel loops have decreased there is a focal loop of ileum which is fecalized upstream to a short segment of the luminal narrowing. This may represent focal dysmotility versus a stricture. These findings are overall likely sequelae of recent bout of enteritis with differential diagnoses include inflammatory bowel disease. Patient was ordered a liter of normal saline wide open due to the elevated specific gravity urine. I did have a detailed discussion with the patient and family member concerning lab work and CT scan results and plan of care patient was provided prescriptions for Zofran, Bentyl and Phenergan suppositories and was referred to follow-up with Dr. Yang. The patient also wanted a work note. Lab work Diagnoses as of 03/26/24556 Enteritis Gerardo Saunders DO 03/26/24556 [facility] Work Phone: 03-24-2024 Hospital Discharge instructions Berto Diana MD - 03/24/2024 3:17 PM EDT Cipro FOR INFECTION LOMOTIL FOR DIARRHEA/CRAMPS BLAND DIET GI FOLLOW UP The following attachments cannot be sent through Care Everywhere.Abdominal pain (Portuguese)Diarrhea, Adult ED (Portuguese)Inflammatory Bowel Disease Discharge Instructions (Portuguese)documented in this encounter [facility] Work Phone: 03-24-2024 Emergency department Note Chief Complaint: ABD CRAMPING/DIARRHEA Is a 49-year-old male complains of abdominal cramping that was diffuse in nature for the past day and a half with diarrhea he had 2 episodes of emesis he denies any bloody emesis or any bloody diarrhea or melanotic stools he has had no previous abdominal surgeries denies any unusual food intake otherwise and presents now for evaluation Review of Systems Constitutional: Positive for appetite change. Negative for chills and fatigue. HENT: Negative. Eyes: Negative. Respiratory: Negative. Cardiovascular: Negative. Gastrointestinal: Positive for abdominal pain, diarrhea, nausea and vomiting. Genitourinary: Negative for dysuria and flank pain. Musculoskeletal: Negative for arthralgias and myalgias. Skin: Negative. Neurological: Negative for dizziness and numbness. Hematological: Negative. Psychiatric/Behavioral: Negative. All other systems reviewed and are negative. Physical Exam Constitutional: Appearance: He is well-developed. He is obese. He is not ill-appearing or toxic-appearing. HENT: Head: Normocephalic and atraumatic. Eyes: Extraocular Movements: Extraocular movements intact. Pupils: Pupils are equal, round, and reactive to light. Cardiovascular: Rate and Rhythm: Normal rate. Heart sounds: Normal heart sounds. No murmur heard. Pulmonary: Effort: Pulmonary effort is normal. Breath sounds: Normal breath sounds. Abdominal: General: Abdomen is protuberant. Bowel sounds are increased. There is no distension. Palpations: Abdomen is soft. There is no shifting dullness, hepatomegaly or splenomegaly. Tenderness: There is generalized abdominal tenderness. There is no right CVA tenderness or left CVA tenderness. Hernia: No hernia is present. Skin: General: Skin is warm and dry. Capillary Refill: Capillary refill takes less than 2 seconds. Coloration: Skin is not pale. Findings: No rash. Neurological: General: No focal deficit present. Mental Status: He is alert and oriented to person, place, and time. Psychiatric: Mood and Affect: Mood normal. Behavior: Behavior normal. Labs Reviewed CBC WITH AUTO DIFFERENTIAL - Abnormal Result Value WBC 10.3 nRBC 0.0 RBC 6.23 (*) Hemoglobin 18.9 (*) Hematocrit 54.3 (*) MCV 87 MCH 30.3 MCHC 34.8 RDW 13.4 Platelets 209 Neutrophils % 70.2 Immature Granulocytes %, Automated 0.4 Lymphocytes % 20.1 Monocytes % 6.7 Eosinophils % 1.9 Basophils % 0.7 Neutrophils Absolute 7.22 Immature Granulocytes Absolute, Automated 0.04 Lymphocytes Absolute 2.07 Monocytes Absolute 0.69 Eosinophils Absolute 0.20 Basophils Absolute 0.07 URINALYSIS WITH REFLEX CULTURE AND MICROSCOPIC - Abnormal Color, Urine Yellow Appearance, Urine Clear Specific [place], Urine 1.034 pH, Urine 5.5 Protein, Urine 20 (TRACE) Glucose, Urine Normal Blood, Urine 0.2 (2+) (*) Ketones, Urine NEGATIVE Bilirubin, Urine NEGATIVE Urobilinogen, Urine Normal Nitrite, Urine NEGATIVE Leukocyte Esterase, Urine NEGATIVE URINALYSIS MICROSCOPIC WITH REFLEX CULTURE - Abnormal WBC, Urine 1-5 RBC, Urine 6-10 (*) Mucus, Urine 2+ C. DIFFICILE, PCR - Normal C. difficile, PCR Not Detected Narrative: This test is an FDA-cleared real-time PCR assay for detection of toxigenic C. difficile DNA from unprocessed liquid or unformed stool specimens that have not undergone nucleic acid extraction in symptomatic patients with potential C. difficile infection (CDI). A positive result may indicate colonization, and clinical assessment is required for the diagnosis of CDI. This test cannot be performed on formed stools or used as a test of cure, and should not be performed more than once per 7 days. BASIC METABOLIC PANEL - Normal Glucose 90 Sodium 139 Potassium 3.9 Chloride 107 Bicarbonate 23 Anion Gap 13 Urea Nitrogen 19 Creatinine 1.21 eGFR 73 Calcium 9.9 MAGNESIUM - Normal Magnesium 1.84 LIPASE - Normal Lipase 13 Narrative: Venipuncture immediately after or during the administration of Metamizole may lead to falsely low results. Testing should be performed immediately prior to Metamizole dosing. HEPATIC FUNCTION PANEL - Normal Albumin 4.4 Bilirubin, Total 0.7 Bilirubin, Direct 0.1 Alkaline Phosphatase 73 ALT 33 AST 20 Total Protein 6.9 LACTATE - Normal Lactate 0.8 Narrative: Venipuncture immediately after or during the administration of Metamizole may lead to falsely low results. Testing should be performed immediately prior to Metamizole dosing. OCCULT BLOOD X1, STOOL URINALYSIS WITH REFLEX CULTURE AND MICROSCOPIC Narrative: The following orders were created for panel order Urinalysis with Reflex Culture and Microscopic. Procedure Abnormality Status --------- ------ Urinalysis with Reflex C...[[id number]] Abnormal Final result Extra Urine Reina Tube[[id number]] In process Please view results for these tests on the individual orders. EXTRA URINE REINA TUBE CT abdomen pelvis w IV contrast Final Result 1. Hepatosplenomegaly with a 1.4 cm cyst in left hepatic lobe. 2. Fatty liver with a small amount of focal fatty sparing adjacent to the gallbladder 3. There is circumferential bowel wall thickening and submucosal edema with mild hyperemia of the vasa recta seen involving very long segment small bowel with sparing of the proximal roughly 12-15 cm segment of the distal small bowel including terminal ileum. I suspect that this is most likely from an infectious enteritis with active inflammation. A small amount of free fluid within the pelvis is present. MACRO: None Signed by: Serena Campbell 03/24/2024 2:55 PM Dictation workstation: [id number] Procedures Medical Decision Making His differential diagnosis included colitis diverticulitis bowel obstruction abdominal pain. IV of normal saline was ordered with a normal saline 1 L bolus Zofran 4 mg intravenously morphine sulfate 4 mg IV as well as routine labs and CT scan of the abdomen pelvis with IV contrast. [place] markedly improved after initial treatment. C. difficile was negative urinalysis was clear his metabolic panel and liver function test was normal white blood count 10,000 with a normal hemoglobin hematocrit magnesium was normal CT scan showed a liver cyst as well as circumferential bowel wall thickening consistent with an enteritis. Patient will be started on Cipro for presumed bacterial enteritis. He also be started on Lomotil for diarrhea and cramping and is given a work excuse and is to follow-up with Dr. Aviva TORO in 5 days Diagnoses as of 03/24/24 1519 Abdominal pain, unspecified abdominal location Diarrhea, unspecified type Enteritis Berto Diana MD 03/24/24 1519 documented in this encounter [facility] Work Phone: 03-24-2024 Physician Emergency department Note Chief Complaint: ABD CRAMPING/DIARRHEA Is a 49-year-old male complains of abdominal cramping that was diffuse in nature for the past day and a half with diarrhea he had 2 episodes of emesis he denies any bloody emesis or any bloody diarrhea or melanotic stools he has had no previous abdominal surgeries denies any unusual food intake otherwise and presents now for evaluation Review of Systems Constitutional: Positive for appetite change. Negative for chills and fatigue. HENT: Negative. Eyes: Negative. Respiratory: Negative. Cardiovascular: Negative. Gastrointestinal: Positive for abdominal pain, diarrhea, nausea and vomiting. Genitourinary: Negative for dysuria and flank pain. Musculoskeletal: Negative for arthralgias and myalgias. Skin: Negative. Neurological: Negative for dizziness and numbness. Hematological: Negative. Psychiatric/Behavioral: Negative. All other systems reviewed and are negative. Physical Exam Constitutional: Appearance: He is well-developed. He is obese. He is not ill-appearing or toxic-appearing. HENT: Head: Normocephalic and atraumatic. Eyes: Extraocular Movements: Extraocular movements intact. Pupils: Pupils are equal, round, and reactive to light. Cardiovascular: Rate and Rhythm: Normal rate. Heart sounds: Normal heart sounds. No murmur heard. Pulmonary: Effort: Pulmonary effort is normal. Breath sounds: Normal breath sounds. Abdominal: General: Abdomen is protuberant. Bowel sounds are increased. There is no distension. Palpations: Abdomen is soft. There is no shifting dullness, hepatomegaly or splenomegaly. Tenderness: There is generalized abdominal tenderness. There is no right CVA tenderness or left CVA tenderness. Hernia: No hernia is present. Skin: General: Skin is warm and dry. Capillary Refill: Capillary refill takes less than 2 seconds. Coloration: Skin is not pale. Findings: No rash. Neurological: General: No focal deficit present. Mental Status: He is alert and oriented to person, place, and time. Psychiatric: Mood and Affect: Mood normal. Behavior: Behavior normal. Labs Reviewed CBC WITH AUTO DIFFERENTIAL - Abnormal Result Value WBC 10.3 nRBC 0.0 RBC 6.23 (*) Hemoglobin 18.9 (*) Hematocrit 54.3 (*) MCV 87 MCH 30.3 MCHC 34.8 RDW 13.4 Platelets 209 Neutrophils % 70.2 Immature Granulocytes %, Automated 0.4 Lymphocytes % 20.1 Monocytes % 6.7 Eosinophils % 1.9 Basophils % 0.7 Neutrophils Absolute 7.22 Immature Granulocytes Absolute, Automated 0.04 Lymphocytes Absolute 2.07 Monocytes Absolute 0.69 Eosinophils Absolute 0.20 Basophils Absolute 0.07 URINALYSIS WITH REFLEX CULTURE AND MICROSCOPIC - Abnormal Color, Urine Yellow Appearance, Urine Clear Specific [place], Urine 1.034 pH, Urine 5.5 Protein, Urine 20 (TRACE) Glucose, Urine Normal Blood, Urine 0.2 (2+) (*) Ketones, Urine NEGATIVE Bilirubin, Urine NEGATIVE Urobilinogen, Urine Normal Nitrite, Urine NEGATIVE Leukocyte Esterase, Urine NEGATIVE URINALYSIS MICROSCOPIC WITH REFLEX CULTURE - Abnormal WBC, Urine 1-5 RBC, Urine 6-10 (*) Mucus, Urine 2+ C. DIFFICILE, PCR - Normal C. difficile, PCR Not Detected Narrative: This test is an FDA-cleared real-time PCR assay for detection of toxigenic C. difficile DNA from unprocessed liquid or unformed stool specimens that have not undergone nucleic acid extraction in symptomatic patients with potential C. difficile infection (CDI). A positive result may indicate colonization, and clinical assessment is required for the diagnosis of CDI. This test cannot be performed on formed stools or used as a test of cure, and should not be performed more than once per 7 days. BASIC METABOLIC PANEL - Normal Glucose 90 Sodium 139 Potassium 3.9 Chloride 107 Bicarbonate 23 Anion Gap 13 Urea Nitrogen 19 Creatinine 1.21 eGFR 73 Calcium 9.9 MAGNESIUM - Normal Magnesium 1.84 LIPASE - Normal Lipase 13 Narrative: Venipuncture immediately after or during the administration of Metamizole may lead to falsely low results. Testing should be performed immediately prior to Metamizole dosing. HEPATIC FUNCTION PANEL - Normal Albumin 4.4 Bilirubin, Total 0.7 Bilirubin, Direct 0.1 Alkaline Phosphatase 73 ALT 33 AST 20 Total Protein 6.9 LACTATE - Normal Lactate 0.8 Narrative: Venipuncture immediately after or during the administration of Metamizole may lead to falsely low results. Testing should be performed immediately prior to Metamizole dosing. OCCULT BLOOD X1, STOOL URINALYSIS WITH REFLEX CULTURE AND MICROSCOPIC Narrative: The following orders were created for panel order Urinalysis with Reflex Culture and Microscopic. Procedure Abnormality Status --------- ------ Urinalysis with Reflex C...[[id number]] Abnormal Final result Extra Urine Reina Tube[[id number]] In process Please view results for these tests on the individual orders. EXTRA URINE REINA TUBE CT abdomen pelvis w IV contrast Final Result 1. Hepatosplenomegaly with a 1.4 cm cyst in left hepatic lobe. 2. Fatty liver with a small amount of focal fatty sparing adjacent to the gallbladder 3. There is circumferential bowel wall thickening and submucosal edema with mild hyperemia of the vasa recta seen involving very long segment small bowel with sparing of the proximal roughly 12-15 cm segment of the distal small bowel including terminal ileum. I suspect that this is most likely from an infectious enteritis with active inflammation. A small amount of free fluid within the pelvis is present. MACRO: None Signed by: Serena Campbell 03/24/2024 2:55 PM Dictation workstation: [id number] Procedures Medical Decision Making His differential diagnosis included colitis diverticulitis bowel obstruction abdominal pain. IV of normal saline was ordered with a normal saline 1 L bolus Zofran 4 mg intravenously morphine sulfate 4 mg IV as well as routine labs and CT scan of the abdomen pelvis with IV contrast. [place] markedly improved after initial treatment. C. difficile was negative urinalysis was clear his metabolic panel and liver function test was normal white blood count 10,000 with a normal hemoglobin hematocrit magnesium was normal CT scan showed a liver cyst as well as circumferential bowel wall thickening consistent with an enteritis. Patient will be started on Cipro for presumed bacterial enteritis. He also be started on Lomotil for diarrhea and cramping and is given a work excuse and is to follow-up with Dr. Aviva TORO in 5 days Diagnoses as of 03/24/24 1519 Abdominal pain, unspecified abdominal location Diarrhea, unspecified type Enteritis Berto Diana MD 03/24/24 1519 [facility] Work Phone: Evaluation note Diagnosis Enteritis- Primary Other and unspecified noninfectious gastroenteritis and colitis documented in this encounter [facility] Work Phone: Evaluation note* Diagnosis Abdominal pain, unspecified abdominal location- Primary Diarrhea, unspecified type Enteritis Other and unspecified noninfectious gastroenteritis and colitis documented in this encounter [facility] Work Phone: Evaluation note* Diagnosis Pain of right heel- Primary documented in this encounter [facility] Work Phone: Hospital Discharge instructions* Attachments The following attachments cannot be sent through Care Everywhere. * Inflammatory Bowel Disease [facility] (Portuguese[facility]* Attachments The following attachments cannot be sent through Care Everywhere. * Heel Pain Caused by Plantar Fasciitis Discharge Instructions (Portuguese) [facility] Reason for referral (narrative)* Consultation (Emergency) - Authorized Specialty Diagnoses / Procedures Referred By Jefry sheth Referred To Contact Gastroenterology Diagnoses Sonyaitis Gerardo Saunders DO [address] [place] [address] Referral ID Status Reason Start Date Expiration Date Visits Requested Visits Authorized [id number] Authorized Specialty Services Required 03/26/2024 03/26/2025 1 1 * Consultation (Emergency) - Authorized Specialty Diagnoses / Procedures Referred By Jefry sheth Referred To Contact Family Medicine / Primary Care Diagnoses Enteritis Gerardo Saunders, [address] [place] [address] Referral ID Status Reason Start Date Expiration Date Visits Requested Visits Authorized [id number] Authorized Specialty Services Required 03/26/2024 03/26/2025 1 1 [facility] Work Phone: Summary Purpose Family History No Family History Records FoundNo Family History Records FoundNo Family History Records FoundNo Family History Records Found Advance Directives No Advanced Directives Records FoundNo Advanced Directives Records FoundNo Advanced Directives Records FoundNo Advanced Directives Records Found Additional Source Comments <item> Privacy Markings (unrecogniz ed section and content) Section Author: Marivel Donahue PROHIBITION ON REDISCLOSURE OF CONFIDENTIAL INFORMATION This notice accompanies a disclosure of information concerning a client made to you with the consent of such client. (unrecognized sect ion and content) No Status Records FoundNo Status Records FoundNo Status Records FoundNo Status Records Found INFORMATION SOURCE (unrecogn ized section and content) DATE CREATED AUTHOR 04/19/2021 [facility] DATE CREATED AUTHOR AUTHOR'S ORGANIZ ATION 04/03/2024 [facility] DATE CREATED AUTHOR AUTHOR'S ORGANIZ ATION 10/31/2024 [facility] Reason for Visit (unrecogniz ed section and content) Reason Comments Abdominal Pain Pt states he was rec ently seen for abdominal pain but it has gotten worse since then, generalized abdominal pain, mild nausea, decreased urination. no vomiting, denies bowel issues Reason Comments Abdominal Pain Generalized abd pain with n/v/d started yesterday Reason Comments Ankle Pain Right ankle pain for the past few weeks, worse the past couple days. Denies injury Scheduled Active and Recently Administ ered Medications (unrecognized section and content) Medication Order 03/24/2024 03/25/2024 03/26/2024 iohexol (OMNIPaque) 350 mg iodine/mL solution 68 mL (COMPLETED) 68 mL, intravenous, Once in imaging, Starting on Sun03/26/24 at 0446, For 1 dose 0446 (Given - Provid er: Petra Her) morphine injection 4 mg (COMPLETED) 4 mg, intravenous, Once, On Sun03/26/24 at 0340, For 1 dose 0353 (Given - Provid er: Mary Stringer RN) ondansetron (Zofran) injection 4 mg (COMPLETED) 4 mg, intravenous, Once, On Sun03/26/24 at 0340, For 1 dose, When administering via IV Push, administer over 3-5 minutes. 0352 (Given - Provid er: Mary Stringer, REYNA) sodium chloride 0.9 % bolus 1,000 mL (COMPLETED) 1,000 mL, intravenous, at 999 mL/hr, Administer over 1 Hours, Once, On Sun03/26/24 at 0550, For 1 dose 0553 (New Bag - Prov ider: Mary Stringer RN)0616 (Stopped - Provider: Mary Stringer RN) sodium chloride 0.9 % bolus 500 mL (COMPLETED) 500 mL, intravenous, at 999 mL/hr, Administer over 0.5 Hours, Once, On Sun03/26/24 at 0340, For 1 dose 0351 (New Bag - Prov ider: Mary Stringer RN)0414 (Stopped - Provider: Mary Stringer, RN) Continuous Medication Order 03/24/2024 03/25/2024 03/26/2024 sodium chloride 0.9% infusion 150 mL/hr, intravenous, Continuous, Starting on Sun03/26/24 at 0340 0414 ([place] Bag - Prov ider: Mary Stringer RN)0616 (Stopped - Provider: Mary Stringer, RN) Scheduled Medication Order 03/22/2024 03/23/2024 03/24/2024 iohexol (OMNIPaque) 350 mg iodine/mL solution 69 mL (COMPLETED) 69 mL, intravenous, Once in imaging, Starting on Sun03/24/24 at 1354, For 1 dose 1356 (Given - Provid er: Nubia Plata) morphine injection 4 mg (COMPLETED) 4 mg, intravenous, Once, On Sun03/24/24 at 1240, For 1 dose 1245 (Given - Provid er: Anita Watson RN) ondansetron (Zofran) injection 4 mg (COMPLETED) 4 mg, intravenous, Once, On Sun03/24/24 at 1240, For 1 dose, When administering via IV Push, administer over 3-5 minutes. 1244 (Given - Provid er: Anita Watson RN) sodium chloride 0.9 % bolus 1,000 mL (COMPLETED) 1,000 mL, intravenous, at 999 mL/hr, Administer over 1 Hours, Once, On Sun03/24/24 at 1215, For 1 dose 1243 (New Bag - Prov ider: Anita Watson RN)1404 (Stopped - Provider: Anita Watson RN) Continuous Medication Order 03/22/2024 03/23/2024 03/24/2024 sodium chloride 0.9% infusion 125 mL/hr, intravenous, Continuous, Starting on Sun03/24/24 at 1215 1404 (New Bag - Prov ider: Anita Watson RN)1525 (Stopped - Provider: Asuncion Huff RN) Scheduled Medication Order 10/26/2024 10/27/2024 10/28/2024 methylPREDNISolone sod succinate (SOLU-Medrol) injection 125 mg (COMPLETED) 125 mg, intramuscular, Once, On Sun10/28/24 at 2005, For 1 dose 2006 (Given - Provid er: Mirian Lindquist RN) Care Teams (unrecognized sec tion and content) Dressmaking Teacher Relationship Specialty Start Date End Date Jasmin Casey APRN-PILOT CONTROL OPERATOR [address] [place] [address] PCP - General Family Medicine 03/24/24 Dressmaking Teacher Relationship Specialty Start Date End Date Jasmin Casey APRN-PILOT CONTROL OPERATOR [address] [place] [address] PCP - General Family Medicine 03/24/24 Dressmaking Teacher Relationship Specialty Start Date End Date Jasmin Casey, SUPERVISOR [employer] [address] [place] [address] PCP - General Family Medicine 03/24/24 FOR RECORDS PERTAINING TO PATIENTS WHO ARE OR HAVE BEEN ENROLLED IN A CHEMICAL DEPENDENCY/SUBSTANCEABUSE PROGRAM, SOME INFORMATION MAY BE OMITTED. This clinical summary was aggregated from multiple sources. Caution should be exercised in using it in the provision of clinical care. This summary normalizes information from multiple sources, and as a consequence, information in this document may materially change the coding, format and clinical context of patient data. In addition, data may be omitted in some cases. CLINICAL DECISIONS SHOULD BE BASED ON THE PRIMARY CLINICAL RECORDS. [facility] [employer] provides no warranty or guarantee of the accuracy or completeness of information in this document.
--- NOTE | 2024-11-27 04:35 | EX.ED.DYSGE1 ---
HPI History of Present Illness Chief Complaint: General Illness Informant: patient Narrative Narrative: Patient is a 49-year-old male with past medical history of hypertension. He reports that around 5 PM today he developed generalized abdominal discomfort with bouts of nausea vomiting and diarrhea. He states there is no blood or discoloration to either. He reports that multiple people at work are sick with similar symptoms. He states that he could not go to work secondary to the persistent symptoms and is concerned about dehydration based on the amount of emesis and diarrhea and the fact he has difficulty holding down fluids and therefore comes in for evaluation. [facility] Medical History HTN (hypertension) Home Medications ?Medication ?Instructions ?Recorded ?Last Taken ?Type ondansetron 4 mg disintegrating 4 mg PO TID PRN nausea and 11/27/24 Unknown Rx tablet vomiting #21 tabs Allergy/AdvReac Type Severity Reaction Status Date / Time No Known Allergies Allergy Verified 11/27/24 03:24 Surgical History H/O knee surgery Social History Smoking Status: Current every day smoker tobacco type: cigarettes ROS ROS ED Constitutional Constitutional ED: Denies chills or fever(s) Eyes Eyes: Denies blurry vision or change in vision ENT ENT ED: Denies sore throat Cardiovascular Cardiovascular: Reports other Details: Negative syncope ; Denies chest pain Respiratory/Chest Respiratory/Chest: Denies cough or dyspnea Gastrointestinal Gastrointestinal: Reports abdominal pain, diarrhea, nausea and vomiting; Denies melena Genitourinary Genitourinary ED: Denies dysuria or hematuria Musculoskeletal Musculoskeletal: Reports myalgias Integumentary Denies rash Neurologic Neurologic: Denies headache(s) Hematologic/Lymphatic Hematologic/Lymphatic: Denies easy bleeding or easy bruising EXAM Physical Exam Const Vital Signs: 11/27/24 03:23 11/27/24 03:23 11/27/24 03:27 Temperature 98 F 98 F Temperature Source Oral Oral Pulse Rate 102 H 102 H Respiratory Rate 18 18 Respiratory Effort Normal Non-Labored Respiratory Pattern Normal Blood Pressure 134/95 H 134/95 H Blood Pressure Mean 108 108 Pulse Ox 98 98 Oxygen Delivery Method Room Air Room Air 11/27/24 05:03 11/27/24 05:03 11/27/24 06:00 Temperature 98.2 F 98.2 F Temperature Source Oral Pulse Rate 94 95 92 Respiratory Rate 18 18 18 Respiratory Effort Respiratory Pattern Blood Pressure 115/96 H 115/96 H 146/83 H Blood Pressure Mean 102 102 104 Pulse Ox 97 98 96 Oxygen Delivery Method Room Air Room Air Positive well nourished, well developed and obese General Appearance ED: well developed; Negative for pallor Nutritional Appearance: obese HEENT Reports dry mucous membranes HEENT Narrative: Mucous membranes are dry and tacky No tongue or lip swelling no oral lesions no airway edema or compromise No secondary findings in the posterior pharynx to suggest infection Mouth ED: Yes dry mucous membranes Mouth: dry mucous membranes Eyes PERRL and EOMs intact bilaterally General Eye ED: Negative for scleral icterus Neck supple Neck Narrative: No nuchal rigidity or meningeal signs noted Resp normal respiratory effort and clear to auscultation bilaterally Cardio regular rhythm Rate: tachycardic and other Other Details: Slightly tachycardic rate with regular rhythm Radial and carotid pulses are equal and symmetric GI non-distended and no masses GI Narrative: Abdomen is soft and nondistended with hyperactive bowel sounds. There is mild diffuse pain on palpation without voluntary guarding or rigidity. No pulsatile mass or fluid wave. No increased tympany. No peritoneal signs Auscultation: hyperactive bowel sounds Palpation: soft Back/Spine no CVA tenderness Extremity normal to inspection Neuro oriented x3, CN's II-XII intact bilaterally and no sensory deficits noted Sensorium / Orientation: alert Motor Exam: strength 5/5 throughout Psych mental status grossly normal Skin no rashes or lesions noted and No skin turgor normal Skin Narrative: Skin turgor is increased otherwise normal General Skin Exam: Negative for jaundice or pallor MDM MDM MDM Narrative Medical decision making narrative: Patient arrived to the ER slightly hypertensive and mildly tachycardic but otherwise with stable vitals. He has multiple known sick contacts at work with similar symptoms. History and exam is most consistent with viral stomach infection such as norovirus versus rotavirus. Without localized pain I have low concern for acute appendicitis or biliary colic or acute pancreatitis. He has denied any recent travel outside the country or antibiotic use or livestock exposure so have low concern for bacterial intestinal infection such as C. difficile or Salmonella. Based on his physical exam showing dehydration there is concern for acute kidney injury or electrolyte abnormality. Laboratory studies showed slight elevation to his white count which is most likely stress response or secondary to viral infection. Remainder of labs showed no signs of MYRIAM or clinically significant electrolyte changes. Lipase is normal going against pancreatitis. After receiving 2 L of fluid and Zofran patient had no further bouts of vomiting and his vital signs improved. On reevaluation his abdomen remains soft and nonsurgical. Therefore at this time as his vitals have improved and symptoms resolved with treatment I do not feel there is need for further workup and he can be discharged home with symptomatic care. History & Record Review Discussion w/independent historian: Patient Lab Data Attestation: I reviewed the patient's lab results. Labs: Laboratory Results - last 24 hr 11/27/24 03:30 WBC 12.1 H RBC 5.70 Hgb 17.2 H Hct 49.7 MCV 87.2 MCH 30.2 MCHC 34.6 RDW Std Deviation 41.1 RDW Coeff of [place] 13.1 Plt Count 221 MPV 9.1 Immature Gran % (Auto) 0.500 Neut % (Auto) 76.0 H Lymph % (Auto) 14.2 L [place] % (Auto) 7.1 Eos % (Auto) 1.4 Baso % (Auto) 0.8 Absolute Neuts (auto) 9.2 H Absolute Lymphs (auto) 1.71 Nucleated RBC % 0 Sodium 142 Potassium 3.8 Chloride 106 Carbon Dioxide 22.7 Anion Gap 14 BUN 18 Creatinine 1.26 H Estim Creat Clear Calc 81.72 Est GFR (MDRD) Non-Af 69 BUN/Creatinine Ratio 14.4 Glucose 107 H Calcium 9.1 Total Bilirubin 0.59 Direct Bilirubin 0.23 AST 32 ALT 50 H Alkaline Phosphatase 89 Total Protein 6.8 Albumin 4.4 Globulin 2.4 Lipase 23 Discharge Plan Triage Chief Complaint: General Illness ED Provider: Shaquille Cross Dx/Rx/DC Orders Clinical Impression: Nausea vomiting and diarrhea, Dehydration, Hypertension Instructions: ED Dehydration (Adult), ED Gastroenteritis, Viral (Adult) Prescriptions: New ondansetron 4 mg tablet,disintegrating 4 mg PO TID PRN (Reason: nausea and vomiting) Qty: 21 0RF Stand Alone Forms: ED Work / School Excuse Primary Care Provider: Jasmin Coulter NP Referrals: Jasmin Coulter NP, WATER RESOURCES PROGRAM DIRECTOR-C [Primary Care Provider] - Activity Restrictions/Additional Instructions: Your workup is consistent with a viral stomach infection that will last anywhere from 24 hours to 7 days with the average being 3 days. Use the Zofran to help prevent further bouts of nausea and vomiting and keep yourself well-hydrated. Return to the ER should you have any further concerns Print Language: Burmese Disposition Disposition: Home, Self Care Discharge Date/Time: 11/27/24 06:13
[2024-11-27 05:03] VITALS: BP 115/96; PULSE 94; PULSE 95; RESP 18; TEMP 36.8; O2SAT 97; O2SAT 98
[2024-11-27 06:00] VITALS: BP 146/83; PULSE 92; RESP 18; O2SAT 96
== END 2024-11-27 06:13 | disposition home or self-care (01) ==
PROVIDERS: Emergency Provider Emergency Medicine; PCP Nurse Practitioner Family; Visit Provider Emergency Medicine
DX: R11.2 Nausea with vomiting, unspecified (principal); E86.0 Dehydration; I10 Essential (primary) hypertension; R19.7 Diarrhea, unspecified; F17.210 Nicotine dependence, cigarettes, uncomplicated
CPT/HCPCS: 80048; 80076; 83690; 85025; 96361; 96374; 96375; 99283; A4216; J2405